=== PATIENT | male | born 1960 | race Caucasian/White ===

== ENCOUNTER 2021-06-29 00:05 | Emergency (ER) | payer OTHER ==
[~2021-06-29] VITALS: Ht 172 cm; Wt 77.2 kg
--- OUTSIDE RECORDS SUMMARY | 2021-06-29 00:20 | XMS REPORT | Encounter Summary ---
[facility] Address Unknown Phone Unavailable Care Team Providers Care Physician Assistant Surgery Name Role Phone ELVIN ROCHELLE PCP Unavailable Insurance Providers: All historical and current Section Date Range: From patient's date of to the date document was create d. This section includes the names of all active insurance providers for the greg lin Insurance Provider Type of Coverage Plan Name Start of Policy Co verage End of Policy Coverage Group Number Member ID Insurance Provider's Telephone N umber Policy Omalley's Name Patient's Relationship to Policy Omalley [employer] HE[employer]CARE PREFERRED PROVIDER ORGANIZATION (PPO) [employer] Sep 02, 2020 [id number] [phone] JADE WEBER SPO USE [employer] HEALTHCARE PREFERRED PROVIDER ORGANIZATION (PPO) [employer] Jun 13, 2016 [id number] [phone] JADE WEBER SPO USE [employer] ([id number]) [facility] [place] Jun 13, 2016 [id number] [phone] DMITRIY WEBER SPOUSE [facility] Tier 1 Performance Jun 13 [id number] [phone] JADE WEBER SPOUSE Selected Encounter This section includes the information on record at [place] for the Encounter. Date/Time Encounter Type Encounter Description Reason Provider Source Jun 07, 2021 02:00 PM IMMUNIZATION ADMIN EACH ADD PRIMARY CARE/M EDICINE ICD-10-CM Z23 Encounter for immunization with Provider Comments: Encounter for immunization DENA SONG [place] Encounter Template Text not used by [place] Assessments - Encounter Diagnoses This section includes the primary and secondary diag noses documented for the Encounter. Date/Time Primary/Secondary Diagnosis Diagnosis Name Provider Source Jun 07, 2021 02:05 PM PRIMARY Encounter for immunization DENA SONG Aaron [facility] Plan of Treatment: Future Appointments (+ 6 months) and Future Tests (+/- 45 day s) The Plan of Treatment section includes future care activities for the patient fr om all [place] treatment facilities. This section includes future appointments and fu ture orders which are active, pending or scheduled. Future Appointments This section includes appointments that were scheduled t o occur 6 months from the date of the Encounter, up to a maximum of 20 appointme nts. The data comes from all [place] treatment facilities. Appointment Date/Time Appointment Type Appointment Facili ty Name Jul 20, 2021 11:00 AM [facility]ORY - [facility] Sep 14, 2021 10:15 AM AMBULATORY - MEDICINE [facility] Sep 29, 2021 02:00 PM AM[facility]ULATORY MEDICINE [facility] Surgical Procedures: All associated to the encounter This section includes all Surgical Procedures and Surgical Procedure Notes assoc iated to the Encounter. Surgical Procedures This section includes all Surgical Procedures associated to the Encounter. Surgical Procedure Date/Time Procedure Procedure Type Procedure Qualifiers Provider Source Jun 07, 2021 02:00 PM IMMUNIZATION ADMIN EACH ADD IMMUNIZATION ADMI N EACH ADD DUNCANDENA Aaron [facility] Surgical Notes There are no notes associated with this procedure. Surgical Procedure Date/Time Procedure Procedure Type Procedure Qualifiers Provider Source Jun 07, 2021 02:00 PM IMMUNIZATION ADMIN [facility] Surgical Notes There are no notes associated with this procedure. Lab Results: +/- 30 days of the encounter No Data Provided for This Section Vital Signs: All taken on the encounter date No Data Provided for This Section Immunizations: All administered on the encounter date This section contains immunizations associated to the Encounter. Immunization Series Date Issued Reaction Comments INFLUENZA, INJECTABLE, QUADRIVALENT, PRESERVATIVE FREE Jun 07, 2021 INFLUENZA, SEASONAL, INJECTABLE, PRESERVATIVE FREE Jun 07, 2021 ZOSTER RECOMBINANT Jun 07, 2021 Social History: Smoking Status (Most current) and Tobacco Use (All prior to enco unter date) This section includes the most current, and the historical, smoking and tobacco- related health factors from the [place] facility where the Encounter took place. Current Smoking Status This section includes the most current smoking, or tobacco -related health factor, from the [place] facility where the Encounter took place. Date/Time Current Smoking Status Comment Facility Mar 31, 2021 11:00 AM VA-TOBACCO FORMER USER [facility] Tobacco Use History This section includes a history of the smoking, or tobacco -related health factors, that were collected on or before the date of the Encoun ter. The data comes from the [facility] where the Encounter took place. Date/Time Smoking Status/Tobacco Use Comment [facility] Mar 31, 2021 11:00 AM VA-TOBACCO QUIT 15 YRS OR MORE [facility] Dec 24, 2019 08:30 AM VA-TOBACCO FORMER USER [facility] Dec 24, 2019 08:30 AM VA-TOBACCO QUIT 15 YRS OR MORE [facility] Feb 28, 2018 11:10 AM VA-TOBACCO FORMER USER [facility] Feb 28, 2018 11:10 AM VA-TOBACCO QUIT 5 TO < 15 YRS [facility] Aug 15, 2016 07:38 AM CURRENT NON-TOBACCO USER [facility] Jul 14, 2015 08:40 AM CURRENT NON-TOBACCO USER [facility] Jul 01, 2014 09:42 AM CURRENT NON-TOBACCO USER [facility] Mar 19, 2013 11:17 AM CURRENT NON-TOBACCO USER [facility] Advance Directives: All historical and current No Data Provided for This Section Radiology Reports: +/- 30 days of the encounter No Data Provided for This Section Pathology Reports: +/- 30 days of the encounter No Data Provided for This Section Encounter Notes: All associated encounter notes This section contains the clinical notes associated to the Encounter. Date/Time Encounter Note(s) Provider Source Jun 07, 2021 02:02 PM IMMUNIZATION NOTE: LOCAL TITLE: EK-IMMUNIZATIONS/SKIN TESTS STANDARD TITLE: IMMUNIZATION NOTE DATE OF NOTE: JUN 07, 2021@14:02 ENTRY DATE: JUN 07, 2021@14:03:02 AUTHOR: DENA SONG COSIGNER: URGENCY: STATUS: COMPLETED INFLUENZA VACCINE The patient was given the influenza VIS which lists the benefits and side effects of the vaccine and which reviews the risks of not receiving the flu vaccine. The VIS was reviewed with the patient and they were given an opportunity to ask questions. The patient was provided education on how to decrease the risk of influenza infection including social distancing and use of good hand hygiene. The patient denied any prior severe reaction to the flu vaccine or its components. The patient gave verbal consent to receive the vaccine. The seasonal influenza vaccine VIS given to the patient: VIS version date Apr. The patient received seasonal influenza vaccine today - Influenza, Quadrivalent preservative free (Afluria) 0.5 ml IM today in Right Deltoid. 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 Fountain Helper: [employer] Lot#s and Expiration Date: 44E23 03-02-2023 [id number] 03-02-2023 Administered by protocol/policy Complications: None The VIS for the recombinant zoster vaccine (RZV) dated Jun was given to the patient. /roldan/ DENA SONG LPN Signed: 06/07/2021 14:05 DENA SONG [facility]
--- OUTSIDE RECORDS SUMMARY | 2021-06-29 00:20 | XMS REPORT | Encounter Summary ---
[facility] Address Unknown Phone Unavailable Care Team Providers Care Manager Battery Name Role Phone ROCHELLE OCONNOR PCP Unavailable Insurance Providers: All historical and [...] Name Patient's Relationship to Policy Omalley [employer] Virtual [employer] HEALTHCARE PREFERRED PROVIDER ORGANIZATION (PPO) [employer] Sep 02, 2020 [id number] [phone] JADE WEBER SPO USE [employer] HE[employer] PREFERRED PROVIDER ORGANIZATION (PPO) [employer] Jun 13, 2016 [id number] [phone] JADE WEBER SPO USE [employer] ([id number]) [facility] [place] Jun 13, 2016 [id number] [phone] DMITRIY WEBER SPOUSE [facility] [employer] Jun 13 [id number] [phone] JADE WEBER SPOUSE Selected Encounter This section includes the information on record at [place] for the Encounter. Date/Time Encounter Type Encounter Description Reason Provider Source Sep 29, 2020 08:42 AM Outpatient Encounter ADMIN PAT ACTIVTIES (MASNO NCT) IHE Encounter Template Text not used by [facility] Assessments - Encounter Diagnoses No Data Provided for This Section Plan of Treatment: Future Appointments (+ 6 months) and Future Tests (+/- 45 day s) The Plan of Treatment section includes future care activities for the patient fr om all [place] treatment facilities. This section includes future appointments and fu ture orders which are active, pending or scheduled. Future Appointments This section includes appointments that were scheduled t o occur 6 months from the date of the Encounter, up to a maximum of 20 appointme nts. The data comes from all [place] treatment facilities. Appointment Date/Time Appointment Type Appointment Facili ty Name Oct 25, 2020 09:30 AM AMBULATORY - MEDICINE [facility] Nov 21, 2020 01:30 PM AMBULATORY - [facility]ICINE [facility] [place] [facility] Dec 19, 2020 08:30 AM AMBULATORY - NONE [facility] [place] [facility] Surgical Procedures: All associated to the encounter No Data Provided for This Section Lab Results: +/- 30 days of the encounter This section includes the Chemistry and Hematology Lab R esults on record with [place] for the patient. Radiology Reports and Pathology Report s are provided separately, in subsequent sections. Lab Results This section contains the Chemistry/Hematology Results so t were resulted 30 days before or 30 days after the date of the Encounter. Date/Time Source Result Type Result - Unit Interpretation Reference Range Comment Sep 29, 2020 08:43 AM [facility] LIPID PROFILE(HDL,TRI G,CHOL,LDL) Specimen Type: PLASMA No comment entered. Ordering Provider: ROCHELLE OCONNOR Report Released Date/Time: Mar 30, 2020 07:45 AM Reporting Lab: [facility] [place] [facility] [address] [facility] [id number] Performing Lab: [facility] [place] [facility] [address] [facility] [address] CHOLESTEROL 193 mg/dL 0-200 TRIGS 96 mg/dL 0-150 HDL-CHOLESTEROL 46 mg/dL > 40 LDL (CALC) 128 mg/dL H 0-99 Sep 29, 2020 08:43 AM [facility] COMPREHENSIVE METABOL IC PANEL Specimen Type: PLASMA No comment entered. Ordering Provider: ROCHELLE OCONNOR Report Released Date/Time: Mar 30, 2020 07:45 AM Reporting Lab: [facility] [place] [facility] [address] [facility] [address] Performing Lab: [facility] [address] [facility] [address] *CREATININE 0.97 mg/dL 0.70-1.30 UREA NITROGEN mg/dL 25 mg/dL 9-25 GLUCOSE 102 mg/dL H 72-99 SODIUM 139 mEq/L 136-145 POTASSIUM 4.2 mEq/L 3.5-5.0 CALCIUM (mg/dL) 9.7 mg/dL 8.4-10.4 PROTEIN,TOTAL 7.0 g/dL 6.0-8.6 ALBUMIN 4.5 g/dL 3.4-5.0 TOTAL BILIRUBIN 0.7 mg/dL 0.2-1.2 ASPARTATE TRANSAMINASE 26 U/L 5-34 ALANINE AMINOTRANSFERASE 56 U/L H 8-40 CHLORIDE 101 mEq/L 98-107 CO2 31 mEq/L 22-31 ALKALINE PHOSPHATASE 41 U/L 40-150 EGFR 78.4 Sep 29, 2020 08:43 AM [facility] TSH Speci men Type: SERUM No comment entered. Ordering Provider: ROCHELLE OCONNOR Report Released Date/Time: Mar 30, 2020 07:45 AM Reporting Lab: [facility] [address] [facility] [address] Performing Lab: [facility] [address] [facility] [address] TSH 3.192 uIU/mL 0.47-5.00 Sep 29, 2020 08:43 AM [facility] T4 FREE Speci men Type: SERUM No comment entered. Ordering Provider: ROCHELLE OCONNOR Report Released Date/Time: Mar 30, 2020 07:45 AM Reporting Lab: [facility] [address] [facility] [address] Performing Lab: [facility] [address] [facility] [address] T4 FREE 1.03 ng/dL 0.70-1.48 Vital Signs: All taken on the encounter date No Data Provided for This Section Immunizations: All administered on the encounter date No Data Provided for This Section Social History: Smoking Status (Most current) and Tobacco Use (All prior to enco unter date) No Data Provided for This Section Advance Directives: All historical and current No Data Provided for This Section Radiology Reports: +/- 30 days of the encounter No Data Provided for This Section Pathology Reports: +/- 30 days of the encounter No Data Provided for This Section Encounter Notes: All associated encounter notes This section contains the clinical notes associated to the Encounter. Date/Time Encounter Note(s) Provider Source Sep 29, 2020 08:42 AM ADMINISTRATIVE NOTE: LOCAL TITLE: EK-ADMINISTRATIVE COVID-19 STANDARD TITLE: ADMINISTRATIVE NOTE DATE OF NOTE: SEP 29, 2020@08:42 ENTRY DATE: SEP 29, 2020@08:42:47 AUTHOR: ERICA COBB EXP COSIGNER: URGENCY: STATUS: COMPLETED Coronavirus Disease 2019 (COVID-19) Screen The patient reports no COVID-19 diagnosis. The patient reports not waiting for the results of a COVID-19 lab test. The patient reports no fever. The patient reports no new or worsening cough or shortness of breath. The patient reports no cold or flu-like symptoms. The patient reports no new onset of diarrhea, nausea or vomiting. The patient reports no new onset of headache, loss of taste or loss of smell. The patient reports no exposure to someone with COVID-19 within the past 2 weeks. Result: Screen is negative. COVID-19 Immunization Status There is no record of COVID-19 vaccination. /roldan/ ERICA PEGUERODAURRI Nestio Signed: 09/29/2020 08:43 ERICA COBB [facility]
--- OUTSIDE RECORDS SUMMARY | 2021-06-29 00:20 | XMS REPORT | Encounter Summary ---
Author Author [facility] Address Unknown Phone Unavailable Care Team Providers Care Health Administrator Name Role Phone ROCHELLE OCONNOR PCP Unavailable [...] Name Patient's Relationship to Policy Omalley [employer] Design Within [employer] HEALTHCARE PREFERRED PROVIDER ORGANIZATION (PPO) [employer] Sep 02, 2020 [id number] [phone] JADE WEBER SPO USE [employer] HEALTHCARE PREFERRED PROVIDER ORGANIZATION (PPO) [employer] Jun 13, 2016 [id number] [phone] JADE WEBER SPO USE [employer] ([id number]) [facility] [place] Jun 13, 2016 [id number] [phone] DMITRIY WEBER SPOUSE [facility] [employer] Jun 13 [id number] [phone] JADE WEBER SPOUSE Selected Encounter This section includes the information on record at [place] for the Encounter. Date/Time Encounter Type Encounter Description Reason Provider Source January 02, 2021 08:55 AM Outpatient Encounter [facility] FOLLOWUP IHE Encounter Template Text not used by [facility] Assessments - Encounter Diagnoses No Data Provided for This Section Plan of Treatment: Future Appointments (+ 6 months) and Future Tests (+/- 45 day s) The Plan of Treatment section includes future care activities for the patient fr om all [place] treatment facilities. This section includes future appointments and fu ture orders which are active, pending or scheduled. Future Appointments This section includes appointments that were scheduled t o occur 6 months from the date of the Encounter, up to a maximum of 20 appointme nts. The data comes from all [facility] facilities. Appointment Date/Time Appointment Type Appointment Facili ty Name Mar 30, 2021 08:30 AM AMBULATORY - MEDICINE [facility] Mar 31, 2021 11:00 AM AMBULATORY - [facility]IC[facility] Jun 07, 2021 02:00 PM AMBULATORY - NONE [facility] Surgical Procedures: All associated to the encounter [...] the Encounter. Date/Time Encounter Note(s) Provider Source January 02, 2021 08:55 AM NONVA CONSULT: LOCAL TITLE: COMMUNITY CARE CONSULT RESULT NOTE EK STANDARD TITLE: NONVA CONSULT DATE OF NOTE: JANUARY 02, 2021@08:55 ENTRY DATE: JANUARY 02, 2021@08:55:20 AUTHOR: SPIKE HATHAWAY EXP COSIGNER: URGENCY: STATUS: COMPLETED The following Non VA Care consult has been completed. See scanned document for report. Topic/Procedure:VISIT NOTES Institution/Place:[facility] Date of Service:05/10/20, 08/17/20 To refer to the attached scanned document, on the Tools Bar select the Tools, then select Imaging (log in) and then, if needed, select View and display list. /roldan/ SPIKE HATHAWAY state appellate clerk Signed: 01/02/2021 08:59 SPIKE HATHAWAY [facility] PRATIK Soriano IV
--- OUTSIDE RECORDS SUMMARY | 2021-06-29 00:20 | XMS REPORT | Clinical Summary ---
Author Author [facility] Address Unknown Phone Unavailable Care Team Providers Care Code Clerk Name Role Phone Gifty Arredondo PCP Source Comments Some departments are not documenting in the electronic medical record. If you d o not see the information that you expected, contact Release of Information in [facility] [employer] Information Management department at [phone] for further assistan ce in locating additional records.[facility] Allergies Comments Active Allergy Reactions Severity Noted Date Constipation Colestipol MUSCLE PAIN, Medium 04/30/2018 SEE COMMENTS Niacin HEADACHE Low 07/15/2015 Red Yeast Rice MUSCLE PAIN Medium 01/25/2016 Patient has Myasthenia Gravis. Statins cause muscle pain. Can only tolerate Atorvastatin. [id number]-[id number] Reductase MUSCLE PAIN Medium 08/02 Inhibitors Medications End Date Status Medication Sig Dispensed Refills Start Date Active atorvastatin (LIPITOR) 10 Take 10 mg by 0 mg tablet mouth daily. Active icosapent ethyL (VASCEPA) Take 1 g by 0 04/02 1 gram capsule mouth four 0 times daily. Active methocarbamoL (ROBAXIN) Take 500 mg 0 500 mg tablet by mouth as 0 Needed. Active ibuprofen (MOTRIN) 400 mg Take 400 mg 0 03/02 tablet by mouth as 7 Needed. Active aspirin EC 81 mg tablet Take 81 mg by 0 mouth daily. 7 Active cyanocobalamin 1,000 mcg Take 2,000 0 12/23 tablet mcg by mouth 0 daily. Active multivitamin with Take by 0 minerals (MULTIVITAMIN & mouth daily. MINERAL FORMULA PO) Active Problems Problem Noted Date Degenerative disc disease, cervical 05/10/2020 Surgical History Surgery Date Site/Laterality Comments ROTATOR CUFF REPAIR 09/02/2017 - Right 09/01/2018 Medical History Medical History Date Comments Myasthenia (HCC) Arthritis Myasthenia gravis (HCC) Social History Date Tobacco Use Types Packs/Day Years Used Never Smoker Smokeless Tobacco: Never Used Comments Alcohol Use Standard Drinks/Week Not Currently 0 (1 standard drink = 0.6 o z pure alcohol) Sex Assigned at Date Recorded Male 05/02/2020 11:17 AM CDT Last Filed Vital Signs Reading Time Taken Comments Vital Sign 162/55 08/17/2020 10:18 AM CAGE/VAULT SUPERVISOR Blood Pressure 74 08/17/2020 10:18 AM CAGE/VAULT SUPERVISOR Pulse 36.6 C (97.8 F) 08/17/2020 10:18 AM CAGE/VAULT SUPERVISOR Temperature 16 08/17/2020 9:00 AM CAGE/VAULT SUPERVISOR Respiratory Rate 100% 08/17/2020 9:00 AM CAGE/VAULT SUPERVISOR Oxygen Saturation - - Inhaled Oxygen Concentration 79.4 kg (175 lb) 08/17/2020 10:18 AM CAGE/VAULT SUPERVISOR Weight 171.5 cm (5' 7.5") 08/17/2020 10:18 AM CAGE/VAULT SUPERVISOR Height 27 08/17/2020 10:18 AM CAGE/VAULT SUPERVISOR Body Mass Index Plan of Treatment Health Maintenance Due Date Last Done Comments HIV SCREENING 1973 DTAP/TDAP VACCINES (1 - 02/10/1976 Tdap) HEPATITIS C SCREENING 02/10/1976 PHYSICAL (COMPREHENSIVE) 02/10/1976 EXAM COLORECTAL CANCER 02/10/2008 SCREENING SHINGLES RECOMBINANT 02/10/2008 VACCINE (1 of 2) INFLUENZA VACCINE 04/02/2021 Results Not on filefrom Last 3 Months Advance Directives Patient Desktop Support Engineer Explanation Type Date Recorded Advance Directive/DPOA
--- OUTSIDE RECORDS SUMMARY | 2021-06-29 00:21 | XMS REPORT | Encounter Summary ---
[facility] Address Unknown Phone Unavailable Care Team Providers Care Criminal Court Judge Name Role Phone ROCHELLE OCONNOR PCP Unavailable [...] [place] [employer] PREFERRED PROVIDER ORGANIZATION (PPO) [employer] Sep 02, 2020 [id number] [phone] JADE WEBER SPO USE [employer] PREFERRED PROVIDER ORGANIZATION (PPO) [employer] Jun 13, 2016 [id number] [phone] JADE WEBER SPO USE [employer] ([id number]) [facility] [place] Jun 13, 2016 [id number] [phone] [facility] [employer] Jun 13 [id number] [phone] JADE WEBER SPOUSE Selected Encounter This section includes the information on record at [place] for the Encounter. Date/Time Encounter Type Encounter Description Reason Provider Source Mar 31, 2021 11:00 AM OFFICE O/P EST MOD 30-39 MIN PRIMARY CARE/ MEDICINE ICD-10-CM E78.2 Mixed hyperlipidemia with Provider Comments: Mixed hyperlipidemia ([facility] [id number]) ROCHELLE OCONNOR [place] Encounter Template Text not used by [place] Assessments - Encounter Diagnoses This section includes the primary and secondary diag noses documented for the Encounter. Date/Time Primary/Secondary Diagnosis Diagnosis Name Provider Source Mar 31, 2021 07:58 PM PRIMARY Mixed hyperlipidemia SOPHIA OCONNOR [facility] Mar 31, 2021 07:58 PM SECONDARY Abnormal results of thyroi d function studies [facility] Mar 31, 2021 07:58 PM SECONDARY Athscl heart disea se of [place] coronary artery w/o ang pctrs [facility] Mar 31, 2021 07:58 PM SECONDARY Calculus of gallbl adder w/o cholecystitis w/o obstruction [facility] Mar 31, 2021 07:58 PM SECONDARY Cervical disc diso rder, unsp, unspecified cervical region [facility] Mar 31, 2021 07:58 PM SECONDARY Chronic fatigue, unspecified [facility] Mar 31, 2021 07:58 PM SECONDARY Cramp and spasm [facility] Mar 31, 2021 07:58 PM SECONDARY Elevation of level s of liver transaminase levels [facility] Mar 31, 2021 07:58 PM SECONDARY Encounter for immunization [facility] Mar 31, 2021 07:58 PM SECONDARY Gastro-esophageal reflux disease without esophagitis ELVIN,[facility] Mar 31, 2021 07:58 PM SECONDARY Myasthenia gravis with (ac sault ste[place]) exacerbation [facility] Mar 31, 2021 07:58 PM SECONDARY Other seasonal allergic rhinitis ELVIN,[facility] Mar 31, 2021 07:58 PM SECONDARY Pain in right shoulder ELVIN, [facility] Mar 31, 2021 07:58 PM SECONDARY Unspecified hemorrhoids ELVIN ,[facility] Plan of Treatment: Future Appointments (+ 6 months) and Future Tests (+/- 45 day s) The Plan of Treatment section includes future care activities for the patient fr om all VA treatment facilities. This section includes future appointments and fu ture orders which are active, pending or scheduled. Future Appointments This section includes appointments that were scheduled t o occur 6 months from the date of the Encounter, up to a maximum of 20 appointme nts. The data comes from all [facility]. Appointment Date/Time Appointment Type Appointment Facili ty Name Jun 07, 2021 02:00 PM AMBULATORY - NONE [facility] Jul 20, 2021 11:00 AM AMBULATORY - NONE [facility], VISN 15 Sep 14, 2021 10:15 AM AMBULATORY - MEDICINE [facility] Sep 29, 2021 02:00 PM AMBULATORY - MEDICINE [facility] [place] Active, Pending, and Scheduled Orders This section includes a listing of several types of activ e, pending, and scheduled orders, including clinic medications orders, diagnosti c test orders, procedure orders and consult orders; where the start date of th e order is 45 days before the date of the Encounter or 45 days after the date o f the Encounter. The data comes from all [facility]. Test Date/Time Test Type Test Details Facility Name Mar 31, 2021 11:28 AM Consult Order TO-EYE CARE OUTPT- 589A5 Cons [employer] [facility] Surgical Procedures: All associated to the encounter This section includes all Surgical Procedures and Surgical Procedure Notes assoc iated to the Encounter. Surgical Procedures This section includes all Surgical Procedures associated to the Encounter. Surgical Procedure Date/Time Procedure Procedure Type Procedure Qualifiers Provider Source Mar 31, 2021 11:00 AM IMMUNIZATION ADMIN IMMUNIZATION ADMIN ROCHELLE OCONNOR [facility] Surgical Notes There are no notes associated with this procedure. Lab Results: +/- 30 days of the encounter This section includes the Chemistry and Hematology Lab R esults on record with [place] for the patient. Radiology Reports and Pathology Report s are provided separately, in subsequent sections. Lab Results This section contains the Chemistry/Hematology Results so t were resulted 30 days before or 30 days after the date of the Encounter. Date/Time Source Result Type Result - Unit Interpretation Reference Range Comment Mar 30, 2021 08:38 AM [facility] LIPID PROFILE(HDL,TRI G,CHOL,LDL) Specimen Type: PLASMA No comment entered. Ordering Provider: ROCHELLE OCONNOR Report Released Date/Time: Oct 25, 2020 05:00 PM Reporting Lab: [facility] [address] [facility] [address] Performing Lab: [facility] [address] [facility] [address] CHOLESTEROL 181 mg/dL 0-200 TRIGS 91 mg/dL 0-150 HDL-CHOLESTEROL 50 mg/dL > 40 LDL (CALC) 113 mg/dL H 0-99 Mar 30, 2021 08:38 AM [facility] PROSTATIC SPECIFIC AN TIGEN(TOTAL) Specimen Type: SERUM No comment entered. Ordering Provider: ROCHELLE OCONNOR Report Released Date/Time: Oct 25, 2020 05:00 PM Reporting Lab: [facility] [address] [facility] [address] Performing Lab: [facility] [address] [place] [id number] PROSTATIC SPECIFIC ANTIGEN(TOTAL) 0.73 ng/mL 0.00-4.00 Mar 30, 2021 08:38 AM [facility] COMPREHENSIVE METABOL IC PANEL Specimen Type: PLASMA No comment entered. Ordering Provider: ROCHELLE OCONNOR Report Released Date/Time: Oct 25, 2020 05:00 PM Reporting Lab: [facility] [address] [facility] [address] Performing Lab: [facility] [address] [facility] [address] *CREATININE 0.90 mg/dL 0.70-1.30 UREA NITROGEN mg/dL 21 mg/dL 9-25 GLUCOSE 124 mg/dL H 72-99 SODIUM 139 mEq/L 136-145 POTASSIUM 4.1 mEq/L 3.5-5.0 CALCIUM (mg/dL) 9.5 mg/dL 8.4-10.4 PROTEIN,TOTAL 7.0 g/dL 6.0-8.6 ALBUMIN 4.5 g/dL 3.4-5.0 TOTAL BILIRUBIN 0.8 mg/dL 0.2-1.2 ASPARTATE TRANSAMINASE 26 U/L 5-34 ALANINE AMINOTRANSFERASE 43 U/L H 8-40 CHLORIDE 102 mEq/L 98-107 CO2 28 mEq/L 22-31 ALKALINE PHOSPHATASE 42 U/L 40-150 EGFR 85.2 Mar 30, 2021 08:38 AM [facility] TSH Speci men Type: SERUM No comment entered. Ordering Provider: ROCHELLE OCONNOR Report Released Date/Time: Oct 25, 2020 05:00 PM Reporting Lab: [facility] [address] [facility] [address] Performing Lab: [facility] [address] [facility] [address] TSH 4.105 uIU/mL 0.47-5.00 Mar 30, 2021 08:38 AM [facility] CBC & DIFF Speci men Type: BLOOD No comment entered. Ordering Provider: ROCHELLE OCONNOR Report Released Date/Time: Oct 25, 2020 05:00 PM Reporting Lab: [facility] [address] [facility] [address] Performing Lab: [facility] [address] [facility] [address] WBC 4.26 K/cmm 3.60-11.20 RBC 5.46 M/ul 4.1-5.7 HGB 16.1 g/dl 13.1-16.8 HCT 49.5 % H 38.2-48.4 MCV 90.7 fl 80.1-98.5 MCH 29.5 pg 27.0-34.0 MCHC 32.5 g/dl L 33.0-36.0 PLATELET COUNT 195 K/cmm 150-400 MPV 9.9 fl 7.5-11.2 RDW 13.2 % 11.8-15.1 LYMPHOCYTES, AUTO% 28.9 % NEUTROPHILS, AUTO % 63.4 % MONOCYTES, AUTO% 6.1 % MONOCYTES, ABSOLUTE 0.26 K/cmm 0.19-0.80 NEUTROPHILS, ABSOLUTE 2.70 K/cmm 2.10-8. 00 EOSINOPHILS, ABSOLUTE 0.05 K/cmm 0.00-0. 60 BASOPHILS, ABSOLUTE 0.01 K/cmm 0.00-0.20 EOSINOPHILS, AUTO% 1.2 % BASOPHILS, AUTO% 0.2 % LYMPHOCYTES, ABSOLUTE 1.23 K/cmm 0.77-4. 50 IMMATURE GRANS, ABSOLUTE 0.01 K/cmm 0.00 -0.05 IMMATURE GRANS, AUTO % 0.2 % Mar 30, 2021 08:38 AM [facility] URINALYSIS Speci men Type: URINE No comment entered. Ordering Provider: ROCHELLE OCONNOR Report Released Date/Time: Oct 25, 2020 05:00 PM Reporting Lab: [facility] [address] [facility] [address] Performing Lab: [facility] [address] [facility] [address] URINE COLOR Yellow SPECIFIC GRAVITY 1.024 1.005-1.030 UROBILINOGEN Negative mg/dL 0.1-1.0 URINE BILIRUBIN Negative Negative URINE KETONES Negative mg/dl Negative URINE GLUCOSE Negative mg/dL Negative URINE PROTEIN Negative mg/dl Negative-Tr nam URINE PH 6.0 5-8 APPEARANCE,URINE Clear Clear URINE BLOOD Negative Negative URINE NITRITE Negative Negative LEUKOCYTE ESTERASE Negative Negative Mar 30, 2021 08:38 AM [facility] VITAMIN D (25-OH) Sp ecimen Type: SERUM No comment entered. Ordering Provider: ROCHELLE OCONNOR Report Released Date/Time: Oct 25, 2020 05:00 PM Reporting Lab: [facility] [address] [facility] [address] Performing Lab: [facility] [address] [facility] [address] VITAMIN D (25-OH) 43.5 ng/mL 30.0-96.0 Mar 30, 2021 08:38 AM [facility] T4 FREE Speci men Type: SERUM No comment entered. Ordering Provider: ROCHELLE OCONNOR Report Released Date/Time: Oct 25, 2020 05:00 PM Reporting Lab: [facility] [address] [facility] [address] Performing Lab: [facility] [address] [facility] [address] T4 FREE 0.96 ng/dL 0.70-1.48 Vital Signs: All taken on the encounter date This section contains inpatient and outpatient Vital Signs collected on the date of the Encounter. Date/Time Temperature Pulse Blood Pressure Respiratory Rate SP02 Pa in Height Weight Body Mass Index Source Mar 31, 2021 11:00 AM 98.1 F 69 /min 138/95 mm[Hg] 18 /min 98 % 2 171.2 lb 26 [facility] Immunizations: All administered on the encounter date This section contains immunizations associated to the Encounter. Immunization Series Date Issued Reaction Comments ZOSTER RECOMBINANT 1 Mar 31, 2021 Social History: Smoking Status (Most current) and Tobacco Use (All prior to enco unter date) This section includes the most current, and the historical, smoking and tobacco- related health factors from the [place] facility where the Encounter took place. Current Smoking Status This section includes the most current smoking, or tobacco -related health factor, from the [place] facility where the Encounter took place. Date/Time Current Smoking Status Comment Facility Mar 31, 2021 11:00 AM VA-TOBACCO FORMER USER [facility] Tobacco Use History This section includes a history of the smoking, or tobacco -related health factors, that were collected on or before the date of the Encoun ter. The data comes from the [place] facility where the Encounter took place. Date/Time Smoking Status/Tobacco Use Comment [facility] Mar 31, 2021 11:00 AM VA-TOBACCO QUIT 15 YRS OR MORE [facility] Dec 24, 2019 08:30 AM VA-TOBACCO FORMER USER [facility] Dec 24, 2019 08:30 AM VA-TOBACCO QUIT 15 YRS OR MORE [facility] Feb 28, 2018 11:10 AM VA-TOBACCO FORMER USER [facility] Feb 28, 2018 11:10 AM VA-TOBACCO QUIT 5 TO < 15 YRS [facility] Aug 15, 2016 07:38 AM CURRENT NON-TOBACCO USER [facility] Jul 14, 2015 08:40 AM CURRENT NON-TOBACCO USER [facility] Jul 01, 2014 09:42 AM CURRENT NON-TOBACCO USER [facility] Mar 19, 2013 11:17 AM CURRENT NON-TOBACCO USER [facility] Advance Directives: All historical and current No Data Provided for This Section Radiology Reports: +/- 30 days of the encounter No Data Provided for This Section Pathology Reports: +/- 30 days of the encounter No Data Provided for This Section Encounter Notes: All associated encounter notes This section contains the clinical notes associated to the Encounter. Date/Time Encounter Note(s) Provider Source Mar 31, 2021 11:21 AM PRIMARY CARE NURSE PRACTITBRONWYN CARRION NOTE: LOCAL TITLE: EK-NURSE PRACTITIONER STANDARD TITLE: PRIMARY CARE NURSE PRACTITIONER NOTE DATE OF NOTE: MAR 31, 2021@11:21 ENTRY DATE: MAR 31, 2021@11:21:48 AUTHOR: ROCHELLE OCONNOR EXP COSIGNER: URGENCY: STATUS: COMPLETED EK-NURSE PRACTITIONER PC Has ADDENDA Reason for visit: appt, lab results CC: several issues HPI: Followup chronic medical conditions. * Voices frustration w/ potential changes w/ VA benefits. Received letter stating he may be liable to health care costs. Vet states he had to cancel scheduled nerve ablation, due to concern of potential costs he may incur if benefits denied. [facility] Ortho w/ Adriana to 04/29/21. "I can't get a straight answer from anyone that they will not go back retroactively and bill me for things." At time of last appt 10/25/20, vet c/o frustration w/ [facility] decision to deny nerve ablation tx for neck pain. 03/29/20 [facility] Ortho consult was approved w/ Dr Carrero, auth to 10/15/20. Evidently, Dr Carrero referred vet to other [facility] Ortho provider Dr Adriana Sexton to be eval for nerve ablation. This was denied. Discussed that this provider was not made aware of this. Doesn't appear an RFS was submitted. States he then was contacted by [facility] that the plan for nerve ablation treatment 10/10/20 was denied by VA/[facility]. * Had severe abd pain and went to ER in [place], [place], where his works, in late spring/early summer. Dx w/ gallstone. Pain mgt w/ IV fentanyl and pain relieved. DC to home. States had abd pain off and on for several days. None at present. Also finding of hematuria. Other providers: Self-PCP at [facility], Joi-Ortho surgeon, Graham Jacome PT ROS: Denies chest pain, shortness of breath, orthopnea. No c/o fatigue. No further severe cramps in legs, "seized, excrutiating". Sinus headaches on occasion, seasonal and pressure changes. TUMs prn. Denies dysphagia. History of and seldom troubled with hemorrhoids. Generally no change in bowel habits, tend to be looser. "may have a little IBS, depends on diet. Nocturia: 1x/nite. Denies edema. Skin problems: dry patches in winter anterior lower legs, forearms. R palm site, possible Dupuytren's. Joint pain: neck, R shoulder, left hip pain at nite, needs to change position at intervals at night. Leg cramps, muscle cramps, describes as "aysha horse" sensations in lower legs. Wearing Dansko shoes, help back and hip pain. Ingredient in licorice/same as in chewing tobacco, causes extreme K+ depletion in some people. Takes ibuprofen prn, not daily. Has muscle fatigue, occasional cramps in legs, later in pm. Left eye weakness. Double vision occurs with extremes of gazes "Not for a while". PSH: liver biopsy ? 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 chol problems, "took bucket of pills. Mother: age 85, hypoglycemic. 1 brother: living, no known health issues. 2 sisters: living, both have fibromyalgia Medications: Active Outpatient Medications (including Supplies): Outpatient Medications Status 1) ATORVASTATIN CALCIUM 20MG TAB TAKE ONE-HALF TABLET BY ACTIVE MOUTH AT BEDTIME FOR CHOLESTEROL. REPORT ANY UNEXPLAINED MUSCLE PAIN OR WEAKNESS TO YOUR DOCTOR. 2) ICOSAPENT ETHYL 1GM CAP TAKE TWO CA PSULES BY MOUTH ACTIVE TWO TIMES A DAY - TAKE WITH FOOD (N/F APPROVED) Non-VA Medications Status 1) Non-VA ACETAMINOPHEN 500MG TAB 500M G MOUTH TWO TIMES ACTIVE A DAY NEEDED 2) Non-VA ASPIRIN 81MG EC TAB 81MG LINNETTE TH ONCE A DAY ACTIVE 3) Non-VA CALCIUM CARB 500MG (CA 200MG ) CHEW TAB 500MG ACTIVE MOUTH NEEDED 4) Non-VA CYANOCOBALAMIN 1000MCG TAB 2 000MCG MOUTH ONCE ACTIVE A DAY 5) Non-VA IBUPROFEN 400MG TAB 400MG MO UTH TWO TIMES A ACTIVE DAY NEEDED 6) Non-VA MULTIVITAMINS/MINERALS CAP/T AB 2 GUMMIES MOUTH ACTIVE ONCE A DAY 8 Total Medications Compared newly ordered medications and medication changes to active medications and non-VA medications, and then reviewed medications with patient and/or caregiver. All discrepancies noted and reconciled. Patients, or caregivers, was provided with reconciled medications list and advised to provide to all non VA providers. Potential adverse reactions of new medications were discussed with the patient. Allergies: NIACIN, RED YEAST RICE, COLESTIPOL, ATORVASTATIN PE: Vital signs: B/P: 138/95 (03/31/2021 11:00) Temp: 98.1 F [36.7 C] (03/31/2021 11:00) Pulse: 69 (03/31/2021 11:00) Resp: 18 (03/31/2021 11:00) Height: 67.5 in [171.5 cm] (03/19/2013 14:04) Weight: 171.2 lb [77.8 kg] (03/31/2021 11:00) Pain: 2 (03/31/2021 11:00) BMI: 26.5 General: Ambulatory. Cooperative, alert and oriented to person, place and time. General appearance: casually dressed. No apparent distress. Note 7# wt gain since 03/29/20. HEENT: Glasses for reading, ISADORA, gazes intact, no nystagmus. TMs clear. Wearing mask. Neck. Supple. No adenopathy, thyromegaly, masses, bruits, JVD. Indicates neck pain from lower aspect to occiput. Respiratory: Unlabored. CTA. Cardiac: HRR, no murmurs. Abdomen: Soft. Bowel sounds +. Denies tenderness to palpation. Extremities: No edema. No cyanosis or clubbing. Labs: 03/30/21 Results reviewed with vet and copy provided. Reminders: P:Outpt Medication Reconciliation: MEDICATION RECONCILIATION I have reviewed all medications the patient is taking with the patient and/or caregiver. This includes the Local Active VA prescriptions, Remote Active VA prescriptions, Non-VA Medications, recently VA prescriptions (90-180 days), recently discontinued VA prescriptions (90-180 days) and pending medication orders including over the counter and supplemental medications. I have made changes on the Active Outpatient Medication List and updated the Non-VA Medication List as appropriate. Patient was educated on the need to maintain a current medication list. Copy of medication list given to patient and/or caregiver. Patient verbalizes understanding: yes. P:Test Results Notification: The following tests results along with appropriate management plan were discussed with patient at this clinic visit: Lab results It is documented that patient verbalized understanding of results and/or actions required? Yes Eye Care At-Risk Screen : Patient identified to be at risk for the following eye condition(s): MACULAR DEGENERATION: Macular Degeneration Risk Factors Information: Reminder Term: VA-AMD RISK FACTORS Encounter Diagnosis: 03/29/2020@14:30 I25.10 (ICD-10-CM) Atherosclerotic Heart Disease of [place] Coronary Artery without Angina Pectoris rank: SECONDARY Prov. Narr. - Atherosclerotic Heart Disease of [place] Coronary Artery without Angina Pectoris Action: Referral Ordered: Comprehensive Eye Exam Patient has active eye problems/symptoms. Schedule for a comprehensive eye exam ordered. Assessment/Plan: 1. mixed hyperlipidemia: LDL 113. Contin ues atorvastatin 10mg/day, icosapent 1gm 2 tabs BID. Fenofibrate DCd 10/01/19. Vet DCd Zetia 5mg/day due to elevation in LFT. Unable to tolerate niacin or colestipol. Nutrition consult attended 04/19/14. 2. Ocular myasthenia gravis/diplopia: O rder placed to update eye exam. [facility] Optometry consult 04/23/19. [facility] Neuro Dr Alvarez, seen in [place], [place] 11/09/16 with RX for Mestonin 60mg TID prn, DCd due to side effect of feeling jittery and did not change ocular issues. Directions were to take dose in am 1 hr prior to shaving and then if needed later in day. Avoids over- exertion, fatigue, dehydration, excessive heat. Avoids extremes of gaze which cause double vision. Vet is cautious about meds which can aggravate disease. 3. arthralgias/psoriatic arthritis: Take s Tylenol or ibuprofen prn. Last seen by Rheumatology 06/18/13, likely in remission, return if needed. Avoid stress, as this has been cause of flare in past. 4. muscle cramps: Rarely takes methocarb moreno 1000mg at hs prn. Vet has read that this can aggravate myasthenia gravis. Vet has DCd magnesium. Avoids dehydration. 5. cervical disc disease: Was scheduled w/ [facility] Ortho Dr Adriana Sexton MD coke inspector at [facility] for nerve ablation, but cancelled due to potential change in benefit coverage. At this time, vet does not want to reschedule. Auth to 04/29/21. [facility] ortho w/ Dr Carrero auth t o 10/15/20. [facility] PT completed w/o improvement. MRI, EMG. Multiple modalities w/o improvement. No ice or heat - didn't help. Seldom takes methocarbamol due to myasthenia gravis. Had cervical spine xray 11/05/19 at [facility], thru [facility], see 11/06/19 PACT note w/ report: Mild degenerative spondylosis is seen in the mid to lower cervical spine. Did not attend [facility] Chiropractic consult, not comfortable w/ facility. Prn Tylenol, ibuprofen, not too effective. Diclofenac gel prn. 6. GERD: prn TUMs 7. dermatitis/psoriasis: apply otc corti sone cream to lower legs prn, most effective after shower 8. LFT elevation: ALT 43, stated hx of l iver biopsy + fatty liver. US abd 05/26/14, mild splenomegaly, otherwise ne g 9. CAD seen on CT chest: cardiology cons ult 03/02/14, suggest optimize lipids with LDL goal < 100. Vet attended nutrition consult 04/19/14. Continued diet and exercise. 10. + family hx CVA/TIAs: negative screening US carotids, US AAA 11. hemorrhoids: screening colonoscopy , int hemorrhoids, repeat 7-10 yrs 12. environmental allergic rhinitis: Usi ng Breath Right strips at hs prn nasal congestion. Wants to avoid other options that may effect myasthenia gravis. 13. RIGHT shoulder pain: 09/19/18 right s [facility] arthroscopy surgery. [facility] PT attended. Diclofenac gel not effective prior to surgery. MRI [facility] 06/17/18, see same day PACT note w/ report. 14. hx elevated TSH; TSH and free T4 wnl . 03/17/20 TSH 10.04, no prior elevations. Continue to monitor. 15. cholelithiasis: No current sxs. Rece nt ER at [place], [place] ER. Will request records. No current sxs. UA neg. is involved in treatment decisions, options are discussed. Medications are reviewed, along with pros and cons and alternatives. Questions are encouraged and answered. Instructed to seek emergency medical care if necessary at nearest local facility, or call 911. Orders: 1. schedule 2nd vaccine 2. please request ER records from [place], [place] ER for visit within past 3 months w/ abd pain 3. 6 month fasting lab and appt to gerald tatum at [facility]: lipid, cmp, tsh /es/ ROCHELLE IRIZARRYNEY CHECO Signed: 03/31/2021 19:58 Receipt Acknowledged By: 04/04/2021 09:42 /es/ ELZA Montejo MA RTIN 04/04/2021 ADDENDUM STATUS: COMPLETED FAXED REQUEST FOR RECORDS SENT BY THIS WORKER TO [facility] AT [phone] THIS DATE BY THIS WORKER. /es/ ELZA BARNETT Signed: 04/04/2021 09:43 04/06/2021 ADDENDUM STATUS: COMPLETED 15 PAGE FAX REC'D FROM [facility] WITH THE 'S 01/26/21 ER VISIT TO [facility] REQUESTED BY THIS WORKER AT THE DIRECTION OF THE 'S PCP. GENERAL PRESENTATION: 01/26/21 1750 CHIEF COMPLAINT: ABDOMINAL PAIN HPI NOTES: PATIENT'S PLEASANT 60 YEAR OLD MALE WHO PRESENTS WITH RIGHT LOWER QUADRANT PAIN THAT STARTED ABOUT 45 HOURS AGO. HE STATES IT RADIATES UP INTO HIS RIGHT FLANK. HE DENIES ANY TETICULAR PAIN OR BURNING ON URINATION. HE HAS HAD NAUSEA AND VOMITING X 2 DAYS. HE DENIES NAY BLOOD IN HIS VOMIT. HE STATES 2 DAYS AGO HE HAD AN HOUR OF RIGHT LOWER QUADRANT PAIN THAT RESOLVED BY ITSELF AND THEN A WEEK AGO HE ALSO HAD A SMALL AMOUNT OF PAIN. HE STATES HIS APPENDIX OUT AT THE AGE OF 7. HE DENIES ANY TESTICULAR PAIN. REVIEW OF SYSTEMS: ROS STATEMENTS - ALL SYSTEMS REVIEWED AND NEGATIVE EXCEPT MARKED. CONSITITUTIONAL: DENIES, CHILLS, FATIGUE, FEVER, LETHARGY, MALAISE RECENT WEIGHT LOSS, WEAKNESS - GENERALIZED. RESPIRATORY: DENIES, COUTH, NON-RPODUCTIVE, COUGH, PRODUCTIVE, DYSPNEA ON EXERTION, HEMOPTYSIS, PAROX NOCTURNAL DYSPNA, PLEURITIC PAIN, SHORTNESS OF BREATH, WHEEZING. CARDIOVASCULAR: DENIES, CHEST PAIN, DYSPNEA ON EXERTION, EDEMA, ORTHOPNEA, PALPATATIONS, PAROX NOCTURNAL, DYSPNEA, SYNCOPE. GI: REPORTS, ABDOMINAL PAIN, NAUSEA, VOMITING. DENIES: ANOREXIA, BLECHING, BLOODY/TARRY STOOL,CONSTIPATION, DIARRHEA, DYSPHAGIA, HEMATEMESIS, HEMATOCHEZIA, MUCOUSY STOOL, MELENA, RECTAL PAIN. MALE: DENIES SYSURIA, FLANK PAIN, HEMATURIA, INCONTINENCE, NOCTURIA, PENILE DISCHARGE, PENILE LESIONS, SCROTAL SWELLING, TESTICULAR PAIN, TESTICULAR SWELLING, URINARY FREQUENCY, URINARY URGENCY, URINATION DESCREASED, URINATION INCREASED. NERUOLOGIC: DENIES, ABNORMAL MOVEMENT, BLADDER DYSFUNCTION, BOWEY DYSFUNCTION, CHANGE IN LOC, CONFUSION, DIZINESS, FOCAL WEAKNESS, GENERALIZED WEAKNESS, HEADACHE, LIGHTHEADE, NUMBNESS, PROBLEM WALKING, SEIZURE, SHAKING, SLURRED SPEECH, SPINNING SENSATION, SYNCOPE, TINGLING, UNABLE TO SPEAK, VISION CHANGE. PAST MEDICAL HISTORY: STATED COMPLAINT - ABDOMINAL PAIN ALLERFIES CODED ALLERGIES - NO KNOW ALLERGIES CALCULATED SUICIDE RISK: NO RISK SMOKING STATUS: NEVER SMOKER PHYSICAL EXAM: FIRST DOCUMENTED: PULSE OX - 100 BP - 203/95 BP MEAN - 131 O2 @ ROOM AIR TEMP - 36.6 PULSE - 67 RESP - 18 LAST DOCUMENTED: PULSE OX - 100 BP - 152-82 BP MEAN - 105 PULSE - 88 RESP - 18 02 @ ROOM AIR TEMP - 36.6 GENERAL: ALERT AND ORIENTED X 3 IN NO ACUTE DISTRESS, RESTING COMFORTABLY HEENT: EXTRAOCULAR MUSCLES INTACT, NOMOCEPHALIC ATRAUMATIC NECK/CERFICAL SPINE: NO MIDLINE CERVICAL TENDERNESS, NO LYMPHADENOPATHY APPRECIATED, NO MENINGEAL SIGNS OR NUCHAL RIGIDITY NOTED THORACIC/LUMBAR SPINE: NO MIDLINE SPINAL TENDERNESS, NO STEP-OFFS, NO ECCHYMOSIS OR OTHER ABNORMALITIES NOTED CHEST WALL: NO ECCHYMOSIS OR TENDERNESS APPRECIATED CARDIOVASCULAR: REGULAR RATE AND RHYTHM NO MURMURS APPRECIATED, NORMAL PERIPHERAL PERFUSION PULMONARY: CLEAR TO AUSCULATION BILATERALLY, NO WHEEZING OR RHONCHI APPRECIATED ABDOMEN: SOFT, TENDER PALPATION RIGHT LOWER QUADRANT, NO REBOUND OR GUARDING, POSITIVE BOWEL SOUNDS BENITAL EXAM: NORMAL EXTERNAL GENITALIA, NO MASSES APPRECIATED, BILATERAL DESCENDED TESTES ARE NONTENDER EXTREMITIES: MOVES ALL 4 EXTREMITIES EQUALLUY, NO OBVIOUS DEFORMITIES OR ECCHYMOSIS APPRECIATED NEURO: ALERT AND ACTIVE, NO FOCAL NEUROLOGICAL DEFICITS APPRECIATED, CRANIAL NERVES ii THROUGH XII GROSSLY INTACT, STRENGTH 5-5 BILATERAL UPPER AND LOWER EXTREMITIES PSYCH: DENIES SUCIDAL OR HOMICIDAL IDEATIONS, NORMAL THOUGHT PROCESS REVIEW OF VITAL SIGNS: REVIEWED INTERPRETATIONS & DIAGNOSTICS: LAB: CHEMISTRY SODIUM 136 POTASSIUM 3.8 CHLORIDE 99 L CARBON DIOXIDE 26 ANION GAP 15 BUN 19 CREATININE 1.2 GFT CLACULATION 64 RANDOM GLUCOSE 151 H CALCIUM 9.5 TOTAL BILIRUBIN 0.7 AST 22 ALT 54 TOTAL ALK PHOSPHATASE 50 TROPONIN <0.02 TOTAL PROTEIN 7.6 ALBUMIN 4.5 LAB: HEMATOLOGY WBC 11.5 H RBC 5.69 HGB 17.1 H HCT 50.3 MCV 88.4 MCH 30.1 MCHC 34.0 RDW 12.7 PLT COUNT 209 MPV 9.1 L IMMATURE GRAN % 0 NEUT % 89 LYMP % 7 JACQUI % 4 EOS% 0 BASO % 0 IMMATURE GRAN# 0.1 ABSOLUTE NEUTS 10.3 H ABSOLUTE LYMPHS 0.8 ABSOLUTE MONOS 0.4 ABSOLUTE EOS 0.0 ABSOLUTE BASOS 0.0 LAB: URINE COLOR YELLOW APPEARANCE CLEAR PH 7.0 SPECIFIC GRAVITY 1.020 PROTEIN NEGATIVE KETONES 40 H BLOOD MODERATE H NITRATE NEG BILIRUBIN NEG UROBILINOGEN 0.2 LEUKOCYTE ESTERASE NEG RBC 20-50 H WBC 0-5 SQUAMOUS EPITH CELLS FEW BACTERIA FEW H GLUCOSE NEG RECENT IMPRESSIONS: CT SCAN - ABD & PELVIS W/O CONTRAST IMPRESSION: 1 MILD TO MODERATE RIGHT HYDRONEPHROSIS SECONDAR TO A CALCULUS IN THE RIGHT PROMIMAL URETER. 2 PROMINENCE OF THE WALL SECONDS OF THE COLON AND RECTUM WHICH MAY BE SECONDARY TO UNDERDISTENTION. THESE SEGMENTS OF THE COLON ARE NOT WELL EVALUATION. CORRELATION WITH COLONSCOPY FINDINGS IS RECOMMENDED TO EXCLUDE CLOT PATHOLOGY. READ BY STEFANO GALLARDO MD ECG #1 INTERPRETATION: ADEQUATE TRACING. NO ACUTE ISCHEMIA. THYTHM IS NORMAL SINUS. WA DOES NOT DEMONOSTRAT AV HEART BLOCK. QRS DOES NOT DEMONOSTRATE A BUNDLE BRANCH BLOCK. ST AND T WAVES DO NOT SHOW ANY ST ELEVATION TO SUGGEST ACUTE [place]. SEE MUSE FOR DETAILS AND MEASUREMENTS. AGREE W COMPUTER INTERPRETATION. RE-EVALUATION & MDM PATIENT IS A PLEASANT 60 YEAR OLD MALE WHO PRESENTS WITH RIGHT FLANK PAIN AND HEMATURIA. CT SCAN IS PENDING AT THIS TIME. PATIENT BEING CHECK OUT TO DR. KWOK FOR FINAL DISPOSITION. PATIENT RECEIVED 2 DOSES OF 51 G OF FENTANYL AND NOW RATES HIS PAIN @ 2 OUT OF 10. THE BLOOD PRESSURE BEFORE TURNING PATIENT OVER TO DR. KWOK SHOWS A SYSTOLIC OF 152 MM HG. ED COURSE - MEDS ORDERED: FENTANYL CITRATE - 50 MCG - ASDIRED PRN IV SODIUM CHLORIDE - 10 ML - ASDIRED PRN IV ONDANSETRON HCI - 4 MG - ASDIRED PRN IV DISCHARGE AND DEPARTURE VITAL SIGNS FIRST DOCUMENTED: FIRST DOCUMENTED: PULSE OX - 100 BP - 203/95 BP MEAN - 131 O2 @ ROOM AIR TEMP - 36.6 PULSE - 67 RESP - 18 LAST DOCUMENTED: PULSE OX - 100 BP - 152-82 BP MEAN - 105 PULSE - 88 RESP - 18 02 @ ROOM AIR TEMP - 36.6 CLINICAL IMPRESSION PRIMARY - HEMATURIA SECONDARY - FLANK PAIN DISCHARGE CARE DISCHARGE TO HOME AT 2038 RE-EVALUATION AND MDM PROGRESS #1 IMPROVED, AFTER PAIN MEDS DONAVON IS FEELING MUCH BETTER. HE HAS A 3 MM STONE SHOWING. PATIENT WILL BE DISCHARGED TO HOME TO F/U WITH HIS PRIMARY CARE PHYSICIAN AN OUTPATIENT HE WAS GIVEN RETURN PRECAUTIONS HE UNDERSTAND AND AGREES WITH THE PLAN. PATIENT GIVEN REFERRAL TO UROLOGY AN OUTPATIENT. CURRENT VISIT SCRIPTS: MROPHINE IR MSIR 15 MG PO Q4H PRN PAIN #15 TAB IBUPROFEN MOTRIN IB 600 MG PO QID PRN PAIN #20 TAB PATIENT INSTRUCTIONS: ED KIDNEY STONE W/COLIC REFERRALS: RAIZA TRIVEDI: TOMORROW NOTE IS ELECTRONICALLY SIGNED BY SANTY VERA MD AT 1855 AND LUCIO KWOK MD AT 2039 INCLUDED IN FAX: LABS REPORT W PATHOLOGY ABD PELVIS W/O CONTRAST REPORT EKG STRIPS EKG REPORT ALL PAPERWORK IS COPIED AND FORWARDED TO THE 'S PCP FOR REVIEW WITH ORIGINAL FAX SENT TO MEDICAL RECORDS FOR SCAN THIS DATE BY THIS WORKER. /roldan/ ELZA BARNETT Signed: 04/06/2021 08:36 Receipt Acknowledged By: * AWAITING SIGNATURE * ROCHELLE OCONNOR [facility] Mar 31, 2021 11:06 AM NURSING OUTPATIENT NOTE: LOCAL TITLE: EK-NURSING CLINIC CHECK-IN STANDARD TITLE: NURSING OUTPATIENT NOTE DATE OF NOTE: MAR 31, 2021@11:06 ENTRY DATE: MAR 31, 2021@11:06:50 AUTHOR: ERICA COBB EXP COSIGNER: URGENCY: STATUS: COMPLETED EK-NURSING CLINIC CHECK-IN Has ADDENDA Coronavirus Disease 2019 (COVID-19) Screen The patient was asked if in the last 14 days they have had new onset of any COVID-19 symptoms. They report the following: No symptoms Within the past 14 days, the patient reports no exposure to someone with a febrile/respiratory illness or someone with a known or suspected case of COVID-19 (within 6 feet for > 15 minutes). Result: Screen is negative. PRIMARY REASON FOR VISIT TODAY: 6 MONTH FOLLOW UP PATIENT'S GOAL/MISSION FOR THEIR HEALTH: TO STAY UPRIGHT ALLERGIES/ADR: NIACIN, RED YEAST RICE, COLESTIPOL, ATORVASTATIN VITALS: DATE/TIME TEMP PULSE RESP BP PAIN WEIGHT PUL OX 03/31/21 @ 1100 98.1 69 18 138/95 2 171.2 98 MEDICATION RECONCILIATION: Copy of current medication list on file provided for patient. Instructed to compare with all medications they are currently taking, and to review /discuss discrepancies with provider. LEARNING ASSESSMENT: Patient's preferred language for discussing health care is: Urdu Today's learning assessment regarding patient's readiness to learn. Patient reads well. Barriers to Learning: Vision barrier addressed by: Other: READING ONLY. Preferred Method of Learning: Hands On/Doing Education provided as per documentation below: SCREENING FOR PAIN STATUS: Patient reported pain level as 2 (03/31/2021 11:00) on 0 to 10 scale. Pain Scale used: Numerical Pain Scale Patient states current level of pain is: Acceptable Location of pain that most interferes with your life: "GENERALIZED ALL OVER MUSCLE/JOINT PAINS" Characteristics of pain: PAIN QUALITY: Aching Verbal Education Provided: To patient Understanding of education: Patient: Good Patient Support Member: Not applicable Barriers to Learning: Visual SCREENING FOR FALL RISK: Estevez Fall Assessment History of Falling, immediate or within 3 months: 0 - No Has the patient fallen within the last 12 months? No Secondary Diagnosis: 15 - Yes, more than one diagnosis Ambulatory Aid: 0 - None, bed rest, nurse assist Intravenous Therapy: 0 - No Patient's Gait: 0 - Normal, bed rest, immobile Mental Status: 0 - Oriented to own ability Total Score: 15 Score 0-24 - No intervention indicated SCREENING FOR ABUSE/NEGLECT: Do you have any concerns about feeling safe, neglected or abused? Patient reports feeling safe; denies concern of abuse or neglect. Alcohol Use Screen (AUDIT-C): Alcohol Screen: SCREEN FOR ALCOHOL (AUDIT-C) An alcohol screening test (AUDIT-C) was negative (score=0). 1. How often did you have a drink containing alcohol in the past year? Never 2. How many drinks containing alcohol did you have on a typical day when you were drinking in the past year? Response not required due to responses to other questions. 3. How often did you have six or more drinks on one occasion in the past year? Response not required due to responses to other questions. Depression Screening: Perform PHQ-2 A PHQ-2 screen was performed. The score was 0 which is a negative screen for depression. Over the past two weeks, how often have you been bothered by the following problems? 1. Little interest or pleasure in doing things Not at all 2. Feeling down, depressed, or hopeless Not at all N:Offer MOVE! Program: Discussed with patient the MOVE!/Weight Management Program. The following health risks of overweight/obesity were discussed: heart disease, diabetes, sleep apnea, hypertension, arthritis and certain cancers. Assessed patients readiness to begin weight management activities including the MOVE! Program. Patient offered enrollment into the MOVE!/Weight Management Program. Declined Weight Management (MOVE) Program. N:Pressure Ulcer Risk Screening: Mobility/Friction/Shear - Patient requires assistance for changing position when in bed or chair? No Activity - Patient is confined to bed or requires a wheelchair as their only or primary method of ambulation? No History of Pressure Ulcer - Patient has current/previous wounding over a bony prominence or wounding caused by a medical affairs director? No Moisture - Patient has difficulty controlling bowel or bladder functions? No Nutrition - Patient has had significant weight loss in the past 6 months (10% or more of usual body weight)? No All responses are negative. Screening for risk is negative. Tobacco Use Screening: The patient is a former tobacco user. The patient quit fifteen or more years ago. DISPOSITION: TO PCP ROCHELLE OCONNOR AT 1120. /roldan/ ERICA Lynch Armut Signed: 03/31/2021 11:26 03/31/2021 ADDENDUM STATUS: COMPLETED Herpes Zoster (Shingles) Vaccine: The patient received recombinant zoster vaccine (RZV) 0.5 ml IM in Right deltoid. Roll Filler: [employer] Lot#s and Expiration Date: [email or web address] 09/24/22 [id number] 09/24/22 Administered by protocol/policy Complications: None /roldan/ ROYER PIMENTEL RN,BSN Signed: 03/31/2021 11:57 ERICA COBB [facility]
--- OUTSIDE RECORDS SUMMARY | 2021-06-29 00:21 | XMS REPORT | Encounter Summary ---
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 This section includes the names of all active insurance providers for the greg iln Insurance Provider Type of Coverage Plan Name Start of Policy Co verage End of Policy Coverage Group Number Member ID Insurance Provider's Telephone N umber Policy Omalley's Name Patient's Relationship to Policy Omalley [employer] PREFERRED PROVIDER ORGANIZATION (PPO) [employer] Sep 02, 2020 [id number] [phone] JADE WEBER SPO USE [employer] PREFERRED PROVIDER ORGANIZATION (PPO) [employer] Jun 13, 2016 [id number] [phone] JADE WEBER SPO USE [employer] ([id number]) [facility] [place] Jun 13, 2016 [id number] [phone] DMITRIY WEBER SPOUSE [facility] [employer] Jun 13 [id number] [phone] JADE WEBER SPOUSE Selected Encounter This section includes the information on record at [facility] for the Encounter. Date/Time Encounter Type Encounter Description Reason Provider Source Oct 25, 2020 12:00 AM Outpatient Encounter EVENT (HISTORICAL) IHE Encounter Template Text not used by [facility] Assessments - Encounter Diagnoses No Data Provided for This Section Plan of Treatment: Future Appointments (+ 6 months) and Future Tests (+/- 45 day s) The Plan of Treatment section includes future care activities for the patient fr om all [place] treatment facilities. This section includes future appointments and fu ture orders which are active, pending or scheduled. Future Appointments This section includes appointments that were scheduled t o occur 6 months from the date of the Encounter, up to a maximum of 20 appointme nts. The data comes from all [place] treatment facilities. Appointment Date/Time Appointment Type Appointment Facili ty Name Nov 21, 2020 01:30 PM AMBULATORY - MEDICINE [facility] Dec 19, 2020 08:30 AM AMBULATORY - NONE [facility] Mar 30, 2021 08:30 AM [facility]ORY [facility] MEDICINE [facility] Mar 31, 2021 11:00 AM AMBULATORY - MEDICINE [facility] Surgical Procedures: All associated to the encounter No Data Provided for This Section Lab Results: +/- 30 days of the encounter This section includes the Chemistry and Hematology Lab R esults on record with [facility] for the patient. Radiology Reports and Pathology Report s are provided separately, in subsequent sections. Lab Results This section contains the Chemistry/Hematology Results so t were resulted 30 days before or 30 days after the date of the Encounter. Date/Time Source Result Type Result - Unit Interpretation Reference Range Comment Sep 29, 2020 08:43 AM [facility] LIPID PROFILE(HDL,TRI G,CHOL,LDL) Specimen Type: PLASMA No comment entered. Ordering Provider: ROCHELLE OCONNOR Report Released Date/Time: Mar 30, 2020 07:45 AM Reporting Lab: [facility] [address] [facility] [id number] Performing Lab: [facility] [address] [facility] [address] CHOLESTEROL 193 mg/dL 0-200 TRIGS 96 mg/dL 0-150 HDL-CHOLESTEROL 46 mg/dL > 40 LDL (CALC) 128 mg/dL H 0-99 Sep 29, 2020 08:43 AM [facility] COMPREHENSIVE METABOL IC PANEL Specimen Type: PLASMA No comment entered. Ordering Provider: ROCHELLE OCONNOR Report Released Date/Time: Mar 30, 2020 07:45 AM Reporting Lab: [facility] [address] [facility] [address] Performing Lab: [facility] [address] [facility] [id number] *CREATININE 0.97 mg/dL 0.70-1.30 UREA NITROGEN mg/dL [...] EGFR 78.4 Sep 29, 2020 08:43 AM [facility] TSH Speci men Type: SERUM No comment entered. Ordering Provider: ROCHELLE OCONNOR Report Released Date/Time: Mar 30, 2020 07:45 AM Reporting Lab: [facility] [address] [facility] [phone] Performing Lab: [facility] [address] [facility] [phone] TSH 3.192 uIU/mL 0.47-5.00 Sep 29, 2020 08:43 AM [facility] T4 FREE Speci men Type: SERUM No comment entered. Ordering Provider: ROCHELLE OCONNOR Report Released Date/Time: Mar 30, 2020 07:45 AM Reporting Lab: [facility] [address] [facility] [address] Performing Lab: [facility] [address] [facility] [phone] T4 FREE 1.03 ng/dL 0.70-1.48 Vital Signs: [...] Section Encounter Notes: All associated encounter notes No Data Provided for This Section
--- OUTSIDE RECORDS SUMMARY | 2021-06-29 00:21 | XMS REPORT | Encounter Summary ---
[facility] Address Unknown Phone Unavailable Care Team Providers Care Anode Crew Supervisor Name Role Phone ROCHELLE OCONNOR PCP Unavailable [...] [place] [employer] PREFERRED PROVIDER ORGANIZATION (PPO) [employer] Sep 02, 2020 [id number] [phone] JADE WEBER SPO USE [employer] PREFERRED PROVIDER ORGANIZATION (PPO) [employer] Jun 13, 2016 [id number] [phone] JADE WEBER SPO USE [facility] ([id number]) [facility] [place] Jun 13, 2016 [id number] [phone] [facility] Jun 13 [id number] [phone] JADE WEBER SPOUSE Selected Encounter This section includes the information on record at NH for the Encounter. Date/Time Encounter Type Encounter Description Reason Provider Source Oct 25, 2020 09:30 AM OFFICE O/P EST MOD 30-39 MIN PRIMARY CARE/ MEDICINE ICD-10-CM G70.00 Myasthenia gravis without (acute) exacerbation with Provider Comments: Myasthenia gravis without (acute) exacerbation ROCHELLE OCONNOR [place] Encounter Template Text not used by NH Assessments - Encounter Diagnoses This section includes the primary and secondary diag noses documented for the Encounter. 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 [facility] Oct 25, 2020 04:54 PM SECONDARY Cervical disc diso rder, unsp, unspecified cervical region [facility] Oct 25, 2020 04:54 PM SECONDARY Cramp and spasm ROCHELLE OCONNOR [facility] Oct 25, 2020 04:54 PM SECONDARY [facility]ermatitis, [facility] Oct 25, 2020 04:54 PM SECONDARY Gastro-esophageal reflux disease without esophagitis [facility] Oct 25, 2020 04:54 PM SECONDARY Mixed hyperlipidemia SOPHIA OCONNOR [facility] Oct 25, 2020 04:54 PM SECONDARY Other psoriatic arthropathy [facility] Oct 25, 2020 04:54 PM SECONDARY Other seasonal allergic rhinitis [facility] Oct 25, 2020 04:54 PM SECONDARY Prsnl hx of TIA (T IA), and cereb infrc w/o resid deficits [facility] Oct 25, 2020 04:54 PM SECONDARY Unspecified hemorrhoids ELVIN [facility] Plan of Treatment: Future Appointments (+ 6 months) and Future Tests (+/- 45 day s) The Plan of Treatment section includes future care activities for the patient fr om all NH treatment facilities. This section includes future appointments and fu ture orders which are active, pending or scheduled. Future Appointments This section includes appointments that were scheduled t o occur 6 months from the date of the Encounter, up to a maximum of 20 appointme nts. The data comes from all NH treatment facilities. Appointment Date/Time Appointment Type Appointment Facili ty Name Nov 21, 2020 01:30 PM AMBULATORY - MEDICINE [facility] Dec 19, 2020 08:30 AM AMBULATORY - NONE [facility] [place] Mar 30, 2021 08:30 AM AMBULATORY - MEDICINE [facility] Mar 31, 2021 11:00 AM AMBULATORY - MEDICINE [facility] Surgical Procedures: All associated to the encounter No Data Provided for This Section Lab Results: +/- 30 days of the encounter This section includes the Chemistry and Hematology Lab R esults on record with NH for the patient. Radiology Reports and Pathology Report s are provided separately, in subsequent sections. Lab Results This section contains the Chemistry/Hematology Results so t were resulted 30 days before or 30 days after the date of the Encounter. Date/Time Source Result Type Result - Unit Interpretation Reference Range Comment Sep 29, 2020 08:43 AM [facility] LIPID PROFILE(HDL,TRI G,CHOL,LDL) Specimen Type: PLASMA No comment entered. Ordering Provider: ROCHELLE OCONNOR Report Released Date/Time: Mar 30, 2020 07:45 AM Reporting Lab: [facility] [place] [facility] [address] [facility] [id number] Performing Lab: [facility] [address] [facility] [address] CHOLESTEROL 193 mg/dL 0-200 TRIGS 96 mg/dL 0-150 HDL-CHOLESTEROL 46 mg/dL > 40 LDL (CALC) 128 mg/dL H 0-99 Sep 29, 2020 08:43 AM [facility] COMPREHENSIVE METABOL IC PANEL Specimen Type: PLASMA No comment entered. Ordering Provider: ROCHELLE OCONNOR Report Released Date/Time: Mar 30, 2020 07:45 AM Reporting Lab: [facility] [place] [facility] [address] [facility] [phone] Performing Lab: [facility] [place] [facility] [address] [facility] [phone] *CREATININE 0.97 mg/dL 0.70-1.30 UREA NITROGEN mg/dL [...] EGFR 78.4 Sep 29, 2020 08:43 AM [facility] TSH Speci men Type: SERUM No comment entered. Ordering Provider: ROCHELLE OCONNOR Report Released Date/Time: Mar 30, 2020 07:45 AM Reporting Lab: [facility] [address] [facility] [address] Performing Lab: [facility] [facility] [address] [facility] [address] TSH 3.192 uIU/mL 0.47-5.00 Sep 29, 2020 08:43 AM [facility] T4 FREE Speci men Type: SERUM No comment entered. Ordering Provider: ROCHELLE OCONNOR Report Released Date/Time: Mar 30, 2020 07:45 AM Reporting Lab: [facility] [place] [facility] [address] [facility] [address] Performing Lab: [facility] [place] [facility] [address] [facility] [address] T4 FREE 1.03 ng/dL 0.70-1.48 Vital Signs: All taken on the encounter date This section contains inpatient and outpatient Vital Signs collected on the date of the Encounter. Date/Time Temperature Pulse Blood Pressure Respiratory Rate SP02 Pa in Height Weight Body Mass Index Source Oct 25, 2020 09:59 AM 175.9 lb 2 7 [facility] Oct 25, 2020 09:46 AM 6 [facility] Oct 25, 2020 09:37 AM 97.3 F 76 /min 134/76 mm[Hg] 20 /min 100 % 6 [facility] Immunizations: All administered on the encounter date No Data Provided for This Section Social History: Smoking Status (Most current) and Tobacco Use (All prior to enco unter date) This section includes the most current, and the historical, smoking and tobacco- related health factors from the NH facility where the Encounter took place. Current Smoking Status This section includes the most current smoking, or tobacco -related health factor, from the NH facility where the Encounter took place. Date/Time Current Smoking Status Comment Facility Dec 24, 2019 08:30 AM VA-TOBACCO QUIT 15 YRS OR MORE [facility] Tobacco Use History This section includes a history of the smoking, or tobacco -related health factors, that were collected on or before the date of the Encoun ter. The data comes from the NH facility where the Encounter took place. Date/Time Smoking Status/Tobacco Use Comment [facility] it Dec 24, 2019 08:30 AM VA-TOBACCO QUIT 15 YRS OR MORE [facility] Feb 28, 2018 11:10 AM VA-TOBACCO FORMER USER [facility] Feb 28, 2018 11:10 AM VA-TOBACCO QUIT 5 TO < 15 YRS [facility] Aug 15, 2016 07:38 AM CURRENT NON-TOBACCO USER [facility] Jul 14, 2015 08:40 AM CURRENT NON-TOBACCO USER [facility] Jul 01, 2014 09:42 AM CURRENT NON-TOBACCO USER [facility] Mar 19, 2013 11:17 AM CURRENT NON-TOBACCO USER [facility] Advance Directives: All historical and current No Data Provided for This Section Radiology Reports: +/- 30 days of the encounter No Data Provided for This Section Pathology Reports: +/- 30 days of the encounter No Data Provided for This Section Encounter Notes: All associated encounter notes This section contains the clinical notes associated to the Encounter. Date/Time Encounter Note(s) Provider Source Oct 25, 2020 09:42 AM NURSING OUTPATIENT NOTE: LOCAL TITLE: EK-NURSING CLINIC CHECK-IN STANDARD TITLE: NURSING OUTPATIENT NOTE DATE OF NOTE: OCT 25, 2020@09:42 ENTRY DATE: OCT 25, 2020@09:42:15 AUTHOR: DENA SONG COSIGNER: URGENCY: STATUS: COMPLETED EK-NURSING CLINIC CHECK-IN [...] There is no record of COVID-19 vaccination. PRIMARY REASON FOR VISIT TODAY: fu PATIENT'S GOAL/MISSION FOR THEIR HEALTH: be healthy ALLERGIES/ADR: NIACIN, RED YEAST RICE, COLESTIPOL, ATORVASTATIN VITALS: DATE/TIME TEMP PULSE RESP BP PAIN WEIGHT PUL OX 10/25/20 @ 0937 97.3 76 20 134/76 6 175.9 100 REPRODUCTIVE HISTORY: Concerns regardng sexual/reproductive health: None MEDICATION RECONCILIATION: Copy of current medication list on file provided for patient. Instructed to compare with all medications they are currently taking, and to review /discuss discrepancies with provider. LEARNING ASSESSMENT: Patient's preferred language for discussing health care is: Malay Today's learning assessment regarding patient's readiness to learn. Patient reads well. Barriers to Learning: Has no barriers to learning. Preferred Method of Learning: Reading Listening Seeing / Videos Demonstration Return Demonstration Hands On/Doing Education provided as per documentation below: SCREENING FOR PAIN STATUS: Patient reported pain level as 6 (10/25/2020 09:37) on 0 to 10 scale. * Today's Pain Level: 6 Pain Scale used: Numerical Pain Scale Patient states current level of pain is: Acceptable Location of pain that most interferes with your life: neck Characteristics of pain: PAIN QUALITY: Aching Verbal Education Provided: To patient Understanding of education: Patient: Good Patient Support Member: Not applicable Barriers to Learning: None SCREENING FOR FALL RISK: Estevez Fall Assessment History of Falling, immediate or within 3 months: 25 - Yes Has the patient fallen within the last 12 months? Yes Secondary Diagnosis: 15 - Yes, more than one diagnosis Ambulatory Aid: 0 - None, bed rest, nurse assist Intravenous Therapy: 0 - No Patient's Gait: 0 - Normal, bed rest, immobile Mental Status: 0 - Oriented to own ability Total Score: 40 Moderate (25-44) Provided educational handout: Fall Prevention at Home SCREENING FOR ABUSE/NEGLECT: Do you have any concerns about feeling safe, neglected or abused? Patient reports feeling safe; denies concern of abuse or neglect. SECURE MESSAGING: Patient was invited/encouraged to utilize Secure Messaging for medication refill requests and other non-urgent communication. N:Zoster Immunization: The patient declines to receive the herpes zoster vaccine. Comment: wanting Covid vaccine will wait Influenza Immunization: The patient declines to receive the recommended dose of seasonal influenza vaccine. Comment: wanting covid vac will wait N:BMI Screen: * Weight: 175.9 lb (80 kg) /es/ DENA SONG LPN Signed: 10/25/2020 10:00 10/25/2020 ADDENDUM STATUS: COMPLETED P/C FROM WHO ADVISES THAT HE WAS TO RETURN A CALL TO THIS OFFICE TO PROVIDE HIS PCP ROCHELLE OCONNOR WITH THE INFORMATION REGARDING THE ORTHO DOCTOR THAT HE WAS REFERRED TO: ELISEO SEXTON MD, DRAW FIRE OPERATOR [address] [place] [address] /roldan/ ELZA BARNETT Signed: 10/25/2020 13:32 Receipt Acknowledged By: * AWAITING SIGNATURE * ROCHELLE OCONNOR KATHY J [facility] Oct 25, 2020 09:31 AM ADMINISTRATIVE NOTE: LOCAL TITLE: EK-ADMINISTRATIVE STANDARD TITLE: ADMINISTRATIVE NOTE DATE OF NOTE: OCT 25, 2020@09:31 ENTRY DATE: OCT 25, 2020@09:31:35 AUTHOR: ELZA BARNETT EXP COSIGNER: URGENCY: STATUS: COMPLETED PATIENT PRESENTS TO CLINIC TO CHECK IN FOR A LAB DRAW, A PRIMARY CARE, APPOINTMENT OR A BEHAVIOR HEALTH APPOINTMENT TODAY. IS TEMP CHECKED AND CLEARED TO PROCEED. IS QUESTIONED ABOUT COVID POSITIVE CONTACT WITHIN THE LAST 10 DAYS: "no" IS QUESTIONED ABOUT WHETHER HE/SHE HAS TESTED POSITIVE FOR COVID IN THE LAST 10 DAYS: "no" 'S DEMOGRAPHICS AND INSURANCE ARE CHECKED BY THIS WORKER AND HIS/HER EMAIL ADDRESS IS VERIFIED: CONFIRMS HIS EMAIL ADDRESS FOR ENTRY INTO THE SYSTEM: GUS@Intean Po[employer] Rong[employer]urng 'S COVID19 INJECTION OPTIONS ARE DISCUSSED AND THE IS QUESTIONED REGARDING SCHEDULING AT [facility] OR AWAITING AN INJECTION CLINIC AT [facility]. " ADVISES SHE IS NOT INTERESTED IN THE COVID19 VACCINE" IS REQUESTED TO PROCEED TO THE [facility] AND SELF CHECK IN. /roldan/ ELZA BARNETT Signed: 10/25/2020 09:[address] [facility] Oct 25, 2020 09:10 AM PRIMARY CARE NURSE PRACTITBRONWYN CARRION NOTE: LOCAL TITLE: EK-NURSE PRACTITIONER STANDARD TITLE: PRIMARY CARE NURSE PRACTITIONER NOTE DATE OF NOTE: OCT 25, 2020@09:10 ENTRY DATE: OCT 25, 2020@09:10:58 AUTHOR: ROCHELLE OCONNOR COSIGNER: URGENCY: STATUS: COMPLETED Reason for visit:Reason for visit: appt, lab results CC: several issues HPI: Followup chronic medical conditions. * c/o frustration w/ [facility] decision to deny nerve ablation tx for neck pain. 03/29/20 [facility] Ortho consult was approved w/ Dr Aguilera, auth to 10/15/20. Evidently, Dr Aguilera referred vet to other [facility] Ortho provider Dr Eliseo Sexton to be eval for nerve ablation. This was denied. Discussed that this provider was not made aware of this. Doesn't appear an RFS was submitted. Will submit new consult, v/u. [facility] Ortho authorized w/ DR ALEXIS AGUILERA, [facility], AUTH DATE [id number]. Vet states he has recei jeannie several associated bulls. States he then was contacted by [facility] that the plan for nerve ablation treatment 10/10/20 was denied by [facility]. * Primary c/o neck pain. Voices frustration. Completed PT. Ortho consult to [facility]. MRI, EMG. Multiple modalities w/o improvement. No ice or heat - didn't help. No Tylenol or ibuprofen, not helpful. Seldom takes methocarbamol due to myasthenia gravis. Had cervical spine xray 11/05/19 at [facility], thru [facility], see 11/06/19 PACT note w/ report. * TSH repeat 3.1. Unusual spike in TSH to 10.4 on 03/17/20. Recheck 04/07/20 was 5.9. Recheck 06/22/20 wnl at 3.78. Vet s tates no change in his usual diet, or activities. Will continue to monitor at intervals. Other providers: Self-PCP at [facility], Joi-Ortho surgeon, Graham Jacome PT ROS: Denies chest pain, shortness of breath, orthopnea. No c/o fatigue. No further severe cramps in legs, "seized, excrutiating". Sinus headaches on occasion, seasonal and pressure changes. Occasional reflux, TUMs prn. Denies dysphagia. History of and seldom troubled with hemorrhoids. Generally no change in bowel habits, tend to be looser. "may have a little IBS, depends on diet. Has improved." Nocturia: 1x/nite. Denies edema. 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 [...] DAY - TAKE WITH FOOD (N/F APPROVED) 3) METHOCARBAMOL 500MG TAB TAKE TWO TA BLETS BY MOUTH AT ACTIVE BEDTIME NEEDED FOR MUSCLE SPASM Non-VA Medications Status 1) Non-VA ASPIRIN 81MG EC TAB 81MG LINNETTE TH ONCE A DAY ACTIVE 2) Non-VA CALCIUM CARB 500MG (CA 200MG ) CHEW TAB 500MG ACTIVE MOUTH NEEDED 3) Non-VA CYANOCOBALAMIN 1000MCG TAB 2 000MCG MOUTH ONCE ACTIVE A DAY 4) Non-VA IBUPROFEN 400MG TAB 400MG MO UTH TWO TIMES A ACTIVE DAY NEEDED 5) Non-VA MULTIVITAMINS/MINERALS CAP/T AB 2 GUMMIES MOUTH [...] RICE, COLESTIPOL, ATORVASTATIN PE: Vital signs: B/P: 134/76 (10/25/2020 09:37) Temp: 97.3 F [36.3 C] (10/25/2020 09:37) Pulse: 76 (10/25/2020 09:37) Resp: 20 (10/25/2020 09:37) Height: 67.5 in [171.5 cm] (03/19/2013 14:04) Weight: 175.9 lb [80.0 kg] (10/25/2020 09:59) Pain: 6 (10/25/2020 09:46) BMI: 27.2 General: Ambulatory. Cooperative, alert and oriented to [...] No edema. No cyanosis or clubbing. Labs: 09/29/20 Results reviewed with vet and copy provided. [...] understanding of results and/or actions required? Yes Suicide Screen: C-SSRS Screening [place]-Suicide Severity Rating Scale (C-SSRS Screener) 1. Over the past month, have you wished you were or wished you could go to sleep and not wake up? No 2. Over the past month, have you had any actual thoughts of killing yourself? No 3. Over the past month, have you been thinking about how you might do this? Response not required due to responses to other questions. 4. Over the past month, have you had these thoughts and had some intention of acting on them? Response not required due to responses to other questions. 5. Over the past month, have you started to work out or worked out the details of how to kill yourself? Response not required due to responses to other questions. 6. If yes, at any time in the past month did you intend to carry out this plan? Response not required due to responses to other questions. 7. In your lifetime, have you ever done anything, started to do anything, or prepared to do anything to end your life (for example, collected pills, obtained a gun, gave away valuables, went to the roof but didn't jump)? No 8. If YES, was this within the past 3 months? Response not required due to responses to other questions. [facility] DIGITAL DIVIDE CAPABILITY REMINDER: Patient is not interested in [facility] at this time. 'S RIGHT TO DECLINE STATEMENT understands they have the right to decline the use of [employer] at any time without adverse affects on their continued access to healthcare. Eye Care At-Risk Screen (Nurse): Patient identified to be at risk for the following eye condition(s): MACULAR DEGENERATION: Macular Degeneration Risk Factors Information: Reminder Term: VA-AMD RISK FACTORS Encounter Diagnosis: 03/29/2020@14:30 I25.10 (ICD-10-CM) Atherosclerotic Heart Disease of [place] Coronary Artery without Angina Pectoris rank: SECONDARY Prov. Narr. - Atherosclerotic Heart Disease of [place] Coronary Artery without Angina Pectoris Referral Ordered: Comprehensive Eye Exam Patient has active eye problems/symptoms. Schedule for a comprehensive eye exam ordered. P:Fall Evaluation: Circumstances of the fall: slipped on ice, no injury Diagnostic Plan/Therapeutic Recommendations: Other: no eval sought P:IHD/IVD/DM Elevated LDL: No lipid treatment change is needed based on patient's current status. Comment: unable to tolerate higher dose atorvastatin P:Pain Plan of Care: Patient's pain is not currently being managed effectively. Select any/all: Other (i.e. referrals): Submit another Ortho consult w/ document improvement specialist Assessment/Plan: 1. mixed hyperlipidemia: LDL 128. 6/19/2 0 lipids well within target per local PCP office. Continues atorvastatin 10mg/day, icosapent 1gm 2 tabs BID. Fenofibrate on HOLD since 10/01/19. Vet DCd Zetia 5mg/day due to elevation in LFT. Unable to tolerate niacin or colestipol. Nutrition consult attended 04/19/14. 2. Ocular myasthenia gravis/diplopia: O rder placed to update eye exam. [facility] Optometry consult 04/23/19. [facility] Neuro 10/25/15. [facility] Neuro Dr Alvarez, seen in [place], [place] 11/09/16 with RX for Mestonin 60mg [...] Vet has DCd magnesium. Avoids dehydration. 5. neck pain: Submit [facility] consult for ev al and treat w/ Dr Eliseo Sexton MD nutrition therapist at [facility]. [facility] ortho w/ Dr Aguilera auth to 10/15/20. [facility] PT completed w/o improvement. 11/05/19 cerv spine xray thru [facility] at [facility], see JUDAH, 11/06/19 PACT note: Mild degenerative spondylosis is seen in the mid to lower cervical spine. Did not attend [facility] Chiropractic consult, not comfortable w/ facility. Prn Tylenol, ibuprofen. Diclofenac gel prn. 6. GERD: prn TUMs 7. dermatitis/psoriasis: apply otc corti sone cream to lower legs prn, most effective after shower 8. LFT elevation: ALT 56, stated hx of l iver biopsy + [...] 13. RIGHT shoulder pain: 09/19/18 right s [facility] arthroscopy surgery. [facility] PT attended. Diclofenac gel not effective prior to surgery. MRI thru [facility] at [facility] 06/17/18, see same day PACT note w/ report. 14. hx elevated TSH; TSH 3.1, free T4 1. 03. 03/17/20 TSH 10.04, no prior elevations. 04/07/20 TSH 5.9. Recheck 06/22/20 and wnl. Continue to monitor. is involved in treatment decisions, options are discussed. Medications are reviewed, along with pros and cons and alternatives. Questions are encouraged and answered. Instructed to seek emergency medical care if necessary at nearest local facility, or call 911. Orders: 1. 5 month fasting lab and appt to gerald tatum at [facility]: lipid, cmp, cbc, tsh, free T4, psa, UA, Vit D /roldan/ ROCHELLE KESSLER Signed: 10/25/2020 16:54 Receipt Acknowledged By: 10/25/2020 17:03 /roldan/ ROCHELLE RANKIN MA [facility]
--- OUTSIDE RECORDS SUMMARY | 2021-06-29 00:21 | XMS REPORT | Encounter Summary ---
[facility] Address Unknown Phone Unavailable Care Team Providers Care Shanker Out Name Role Phone ELVIN ROCHELLE PCP Unavailable [...] Omalley [employer] PREFERRED PROVIDER ORGANIZATION (PPO) [place] Sep 02, 2020 [id number] [phone] JADE WEBER SPO USE [employer] PREFERRED PROVIDER ORGANIZATION (PPO) [place] Jun 13, 2016 [id number] [phone] JADE WEBER SPO USE [employer] ([id number]) [facility] [place] Jun 13, 2016 [id number] [phone] GUSDMITRIY SPOUSE [facility] [employer] Jun 13 [id number] [phone] JADE WEBER SPOUSE Selected Encounter This section includes the information on record at [place] for the Encounter. Date/Time Encounter Type Encounter Description Reason Provider Source Nov 21, 2020 01:30 PM ADM SARSCOV2 VAC AD26 .5ML PRIMARY CARE/ME DICINE ICD-10-CM Z23 Encounter for immunization with Provider Comments: Encounter for Immunization ROYER PIMENTEL [facility] Encounter Template Text not used by [facility] Assessments - Encounter Diagnoses This section includes the primary and secondary diag noses documented for the Encounter. Date/Time Primary/Secondary Diagnosis Diagnosis Name Provider Source Nov 21, 2020 01:27 PM PRIMARY Encounter for immunization ROYER NOLASCO [facility] Plan of Treatment: Future Appointments (+ 6 months) and Future Tests (+/- 45 day s) The Plan of Treatment section includes future care activities for the patient fr om all [place] treatment facilities. This section includes future appointments and fu ture orders which are active, pending or scheduled. Future Appointments This section includes appointments that were scheduled t o occur 6 months from the date of the Encounter, up to a maximum of 20 appointme nts. The data comes from all [place] treatment facilities. Appointment Date/Time Appointment Type Appointment Facili ty Name Dec 19, 2020 08:30 AM [facility] Mar 30, 2021 08:30 AM [facility]ORY - MEDICINE [facility] Mar 31, 2021 11:00 AM AMBULATORY - MEDICINE [facility] Surgical Procedures: All associated to the encounter This section includes all Surgical Procedures and Surgical Procedure Notes assoc iated to the Encounter. Surgical Procedures This section includes all Surgical Procedures associated to the Encounter. Surgical Procedure Date/Time Procedure Procedure Type Procedure Qualifiers Provider Source Nov 21, 2020 01:30 PM ADM SARSCOV2 VAC AD26 .5ML ADM SARSCOV2 VAC AD2 6 .5ML [facility] Surgical Notes There are no notes associated with this procedure. Lab Results: +/- 30 days of the encounter No Data Provided for This Section Vital Signs: All taken on the encounter date No Data Provided for This Section Immunizations: All administered on the encounter date This section contains immunizations associated to the Encounter. Immunization Series Date Issued Reaction Comments COVID-19 (NEEMA), VECTOR-NR, RS-AD26, PF, 0.5 ML 1 Nov 21, 2020 JSN; [id number]; 01/24/2021 Social History: Smoking Status (Most current) and Tobacco Use (All prior to enco unter date) This section includes the most current, and the historical, smoking and tobacco- related health factors from the [place] facility where the Encounter took place. Current Smoking Status This section includes the most current smoking, or tobacco -related health factor, from the [place] facility where the Encounter took place. Date/Time Current Smoking Status Comment Facility Dec 24, 2019 08:30 AM [place]-TOBACCO QUIT 15 YRS OR MORE [facility] Tobacco Use History This section includes a history of the smoking, or tobacco -related health factors, that were collected on or before the date of the Encoun ter. The data comes from the [place] facility where the Encounter took place. Date/Time Smoking Status/Tobacco Use Comment Facil it Dec 24, 2019 08:30 AM VA-TOBACCO QUIT 15 YRS OR MORE [facility] Feb 28, 2018 11:10 AM VA-TOBACCO FORMER USER [facility] Feb 28, 2018 11:10 AM MS-TOBACCO QUIT 5 TO < 15 YRS [facility] Aug 15, 2016 07:38 AM CURRENT NON-TOBACCO USER [facility] Jul 14, 2015 08:40 AM CURRENT NON-TOBACCO USER [facility] Jul 01, 2014 09:42 AM CURRENT NON-TOBACCO USER [facility] Mar 19, 2013 11:17 AM CURRENT NON-TOBACCO USER [facility] Advance Directives: All historical and current No Data Provided for This Section Radiology Reports: +/- 30 days of the encounter No Data Provided for This Section Pathology Reports: +/- 30 days of the encounter No Data Provided for This Section Encounter Notes: All associated encounter notes This section contains the clinical notes associated to the Encounter. Date/Time Encounter Note(s) Provider Source Nov 21, 2020 01:26 PM NURSING IMMUNIZATION NOTE: LOCAL TITLE: [facility]AAES NSG COVID-19 VACCINE ADMINISTRATION STANDARD TITLE: NURSING IMMUNIZATION NOTE DATE OF NOTE: NOV 21, 2020@13:26 ENTRY DATE: NOV 21, 2020@13:26:16 AUTHOR: ROYER PIMENTEL EXP COSIGNER: URGENCY: STATUS: COMPLETED The patient was given the EUA fact sheet for this vaccine which lists the benefits and side effects of the vaccine and which reviews the risks of the vaccine. The fact sheet was reviewed with the patient and they were given an opportunity to ask questions. The patient denied any prior severe reaction to this vaccine or its components. The patient gave verbal consent to receive the vaccine. The patient received [employer] Med COVID-19 Vaccine 0.5 ml IM. MVX (Manuf); Lot#; Exp Date: JSN; [id number]; 01/24/2021 Administration Anatomic site: Left Deltoid Vaccine administered without complications. The patient was advised to remain in the facility for 15 minutes post vaccination. The patient was given a completed COVID-19 vaccination record card, a copy of the VA Side Effects and Adverse Events Reporting Fact Sheet and instructed on how to report any adverse reactions. Vaccine administered by policy/protocol. /roldan/ ROYER PIMENTEL RN,BSN Signed: 11/21/2020 13:26 ROYER PIMENTEL [facility]
--- OUTSIDE RECORDS SUMMARY | 2021-06-29 00:21 | XMS REPORT | Encounter Summary ---
Author [facility] Address Unknown Phone Unavailable Care Team Providers Care Family Independence Case Manager Name Role Phone ROCHELLE OOCNNOR PCP Unavailable Insurance Providers: All historical and [...] Omalley [employer] PREFERRED PROVIDER ORGANIZATION (PPO) [employer] Sep 02, 2020 [id number] [phone] JADE WEBER SPO USE [employer] PREFERRED PROVIDER ORGANIZATION (PPO) [facility] [employer] Jun 13, 2016 [id number] [phone] JADE WEBER SPO USE [employer] ([id number]) [facility] [place] Jun 13, 2016 [id number] [phone] DMITRIY WEBER SPOUSE [facility] [employer] Jun 13 [id number] [phone] JADE WEBER SPOUSE Selected Encounter This section includes the information on record at [place] for the Encounter. Date/Time Encounter Type Encounter Description Reason Provider Source Nov 03, 2020 10:11 AM Outpatient Encounter ADMIN PAT ACTIVTIES (MASNO NCT) IHE Encounter Template Text not used by [place] Assessments - Encounter Diagnoses No Data Provided for This Section Plan of Treatment: Future Appointments (+ 6 months) and Future Tests (+/- 45 day s) The Plan of Treatment section includes future care activities for the patient fr om all [place] treatment facilities. This section includes future appointments and fu ture orders which are active, pending or scheduled. Future Appointments This section includes appointments that were scheduled t o occur 6 months from the date of the Encounter, up to a maximum of 20 appointme nts. The data comes from all [place] treatment [facility]. Appointment Date/Time Appointment Type Appointment Facili ty Name Nov 21, 2020 01:30 PM AMBULATORY - MEDICINE [facility] [place] [facility] Dec 19, 2020 08:30 AM AMBULATORY - [facility] Mar 30, 2021 08:30 AM AMBULATORY - MEDICINE [facility] Mar 31, 2021 11:00 AM AMBULATORY - MEDICINE [facility] Surgical Procedures: All associated to the encounter [...] Encounter. Date/Time Encounter Note(s) Provider Source Nov 03, 2020 10:11 AM ADMINISTRATIVE NOTE: LOCAL TITLE: EK-ADMINISTRATIVE STANDARD TITLE: ADMINISTRATIVE NOTE DATE OF NOTE: NOV 03, 2020@10:11 ENTRY DATE: NOV 03, 2020@10:11:31 AUTHOR: YASMEEN JUDD COSIGNER: URGENCY: STATUS: COMPLETED EK-ADMINISTRATIVE Has ADDENDA called U today to schedule Covid19 vaccine appts. Telephone meets the current guidelines for scheduling appts for Telephone's 55 years of age or older. This marketing copywriter verified Telephone's current address and phone number. This marketing copywriter scheduled this Telephone's 1st and 2nd dose and gave directions/instructions to vaccination location. This marketing copywriter gave [facility] phone number [phone] to call if a cancellation is needed. Telephone voiced understanding. This marketing copywriter mailed appt letters to . /roldan/ YASMEEN SANFORD Signed: 11/03/2020 10:18 11/03/2020 ADDENDUM STATUS: COMPLETED This marketing copywriter was given information on Covid19 vaccination clinic at [facility] on 11/21/2020. Icu Manager called to [place] if he would like to be scheduled there since it is closer to his home. Telephone wanted to be scheduled at [facility]. Icu Manager CL CX both doses at [facility] and scheduled at [facility]. /roldan/ YASMEEN SANFORD Signed: 11/03/2020 13:56 YASMEEN JUDD [facility]
--- OUTSIDE RECORDS SUMMARY | 2021-06-29 00:21 | XMS REPORT | Encounter Summary ---
Author [facility] Address Unknown Phone Unavailable Care Team Providers Care Stoker Mechanic Name Role Phone ROCHELEL OCONNOR PCP Unavailable Insurance Providers: All historical [...] Name Patient's Relationship to Policy Omalley [employer] PREFERRED PROVIDER ORGANIZATION (PPO) [employer] Sep 02, 2020 [id number] [phone] JADE WEBER SPO USE [employer] PREFERRED PROVIDER ORGANIZATION (PPO) [employer] Jun 13, 2016 [id number] [phone] JADE WEBER SPO USE [employer] ([id number]) [facility] [place] Jun 13, 2016 [id number] [phone] DMITRIY WEBER SPOUSE [facility] [employer] Jun 13 [id number] [phone] JADE WEBER SPOUSE Selected Encounter This section includes the information on record at [place] for the Encounter. Date/Time Encounter Type Encounter Description Reason Provider Source Mar 31, 2021 12:00 AM Outpatient Encounter EVENT (HISTORICAL) IHE Encounter Template Text not used by VA Assessments - Encounter Diagnoses No Data Provided for This Section Plan of Treatment: Future Appointments (+ 6 months) and Future Tests (+/- 45 day s) The Plan of Treatment section includes future care activities for the patient fr om all [place] treatment facilities. This section includes future appointments and fu ture orders which are active, pending or scheduled. Future Appointments This section includes appointments that were scheduled t o occur 6 months from the date of the Encounter, up to a maximum of 20 appointme nts. The data comes from all [facility]. Appointment Date/Time Appointment Type Appointment Facili ty Name Jun 07, 2021 02:00 PM AMBULATORY - NONE [facility] Jul 20, 2021 11:00 AM AM[facility]ORY - NONE [place] [facility], [facility]IS[facility] 15 Sep 14, 2021 10:15 AM AM[facility]UL[facility]ORY - MEDICINE [facility] Sep 29, 2021 02:00 PM AMBULATORY - MED[facility] Active, Pending, and Scheduled Orders This [...] the Encounter. The data comes from all [facility]. Test Date/Time Test Type Test Details Facility Name Mar 31, 2021 11:28 AM Consult Order TO-EYE CARE OUTPT- 589A5 Cons Fibrous Wallboard Inspector's Choice [facility] Surgical Procedures: All associated to the encounter No Data Provided for This Section Lab Results: +/- 30 days of the encounter This section includes the Chemistry and Hematology Lab R esults on record with [facility] for the patient. Radiology Reports and Pathology Report s are provided separately, in subsequent sections. Lab Results This section contains the Chemistry/Hematology Results so t were resulted 30 days before or 30 days after the date of the Encounter. Date/Time Source Result Type Result - Unit Interpretation Reference Range Comment Mar 30, 2021 08:[address] [facility] LIPID PROFILE(HDL,TRI G,CHOL,LDL) Specimen Type: PLASMA No comment entered. Ordering Provider: ROCHELLE OCONNOR Report Released Date/Time: Oct 25, 2020 05:00 PM Reporting Lab: [facility] [place] [facility] [address] [facility] [address] Performing Lab: [facility] [address] [facility] [address] CHOLESTEROL 181 mg/dL 0-200 TRIGS 91 mg/dL 0-150 HDL-CHOLESTEROL 50 mg/dL > 40 LDL (CALC) 113 mg/dL H 0-99 Mar 30, 2021 08:[address] [facility] PROSTATIC SPECIFIC AN TIGEN(TOTAL) Specimen Type: SERUM No comment entered. Ordering Provider: ROCHELLE OCONNOR Report Released Date/Time: Oct 25, 2020 05:00 PM Reporting Lab: [facility] [address] [facility] [address] Performing Lab: [facility] [address] [facility] [address] PROSTATIC SPECIFIC ANTIGEN(TOTAL) 0.73 ng/mL 0.00-4.00 Mar 30, 2021 08:[address] [facility] COMPREHENSIVE METABOL IC PANEL Specimen Type: PLASMA No comment entered. Ordering Provider: ROCHELLE OCONNOR Report Released Date/Time: Oct 25, 2020 05:00 PM Reporting Lab: [facility] [address] [facility] [address] Performing Lab: [facility] [address] [facility] [address] *CREATININE 0.90 mg/dL 0.70-1.30 UREA NITROGEN mg/dL [...] EGFR 85.2 Mar 30, 2021 08:[address] [facility] TSH Speci men Type: SERUM No comment entered. Ordering Provider: ROCHELLE OCONNOR Report Released Date/Time: Oct 25, 2020 05:00 PM Reporting Lab: [facility] [address] [facility] [address] Performing Lab: [facility] [address] [facility] [address] TSH 4.105 uIU/mL 0.47-5.00 Mar 30, 2021 08:[address] [facility] CBC & DIFF Speci men Type: BLOOD No comment entered. Ordering Provider: ROCHELLE OCONNOR Report Released Date/Time: Oct 25, 2020 05:00 PM Reporting Lab: [facility] [address] [facility] [address] Performing Lab: [facility] [address] [facility] [address] WBC 4.26 K/cmm 3.60-11.20 RBC 5.46 M/ul [...] 0.2 % Mar 30, 2021 08:[address] [facility] URINALYSIS Speci men Type: URINE No comment entered. Ordering Provider: ROCHELLE OCONNOR Report Released Date/Time: Oct 25, 2020 05:00 PM Reporting Lab: [facility] [address] [facility] [address] Performing Lab: [facility] [address] [facility] [address] URINE COLOR Yellow SPECIFIC GRAVITY 1.024 1.005-1.030 UROBILINOGEN Negative mg/dL 0.1-1.0 URINE BILIRUBIN Negative Negative URINE KETONES Negative mg/dl Negative URINE GLUCOSE Negative mg/dL Negative URINE PROTEIN Negative mg/dl Negative-Tr nam URINE PH 6.0 5-8 APPEARANCE,URINE Clear Clear URINE BLOOD Negative Negative URINE NITRITE Negative Negative LEUKOCYTE ESTERASE Negative Negative Mar 30, 2021 08:[address] [facility] VITAMIN D (25-OH) Sp ecimen Type: SERUM No comment entered. Ordering Provider: ROCHELLE OCONNOR Report Released Date/Time: Oct 25, 2020 05:00 PM Reporting Lab: [facility] [address] [facility] [address] Performing Lab: [facility] [address] [facility] [address] VITAMIN D (25-OH) 43.5 ng/mL 30.0-96.0 Mar 30, 2021 08:[address] [facility] T4 FREE Speci men Type: SERUM No comment entered. Ordering Provider: ROCHELLE OCONNOR Report Released Date/Time: Oct 25, 2020 05:00 PM Reporting Lab: [facility] [address] [facility] [address] Performing Lab: [facility] [address] [facility] [address] T4 FREE 0.96 ng/dL 0.70-1.48 Vital Signs: [...]
--- NOTE | 2021-06-29 00:23 | ED Syncope ---
General Stated Complaint: STROKE SYMPTOMS Source of Information: Patient, Caregiver History of Present Illness Date Seen by Provider: Jun 29, 2021 Time Seen by Provider: 00:05 Initial Comments 61-year-old male with past medical history of ocular myasthenia coming in with his due to concerns for syncopal episode that occurred just shortly prior to arrival. He got up from bed, fell, hit the right side of his head, and was found laying down by his . He was confused for some time before he came to. He was able to get a vehicle and walk inside afterwards. He says he believes he was getting up to cough and he believes he got lightheaded and passed out. He is unsure of this however. His states that she does not believe he was coughing and is unsure why or how he passed out or if he tripped. It was dark in the room however. He denies any chest pain, shortness of breath, abdominal pain, nausea, vomiting, diarrhea, fever, chills, weakness, unilateral numbness, vision changes, or any other concerns. He does have a mild headache that is more towards the front right side of his head that is throbbing and constant. Has not tried any medications for it as of yet. Does not take any blood thinners other than a baby aspirin daily. Allergies and Home Medications Allergies Coded Allergies: No Known Drug Allergies (Unverified , 06/29/21) Patient Home Medication List Home Medication List Reviewed: Yes Review of Systems Constitutional: No chills, No fever EENTM: No blurred vision, No double vision Respiratory: cough; No short of breath Cardiovascular: No chest pain, No palpitations; syncope Gastrointestinal: No abdominal pain, No constipation, No diarrhea, No nausea, No vomiting Genitourinary: no symptoms reported Musculoskeletal: no symptoms reported Skin: no symptoms reported Psychiatric/Neurological: No Symptoms Reported All Other Systems Reviewed Negative Unless Noted: Yes Past Ohaueib-Ojhdvf-Bgniza Hx Patient Social History Tobacco Use?: No Substance use?: No Alcohol Use?: Yes Alcohol Frequency: Rarely Past Medical History Surgeries: Yes Appendectomy Physical Exam Vital Signs Vital Signs - First Documented 06/29/21 00:12 Temp 36.5 Pulse 66 Resp 18 B/P (MAP) 185/91 (122) Pulse Ox 99 O2 Delivery Room Air Capillary Refill : Height, Weight, BMI Height: '" Weight: lbs. oz. kg; BMI Method: General Appearance: No Apparent Distress, WD/WN HEENT: PERRL/EOMI, TMs Normal, Normal ENT Inspection, Pharynx Normal Neck: Full Range of Motion, Normal Inspection, Non Tender, Supple Cardiovascular: Regular Rate, Rhythm, No Edema, Normal Peripheral Pulses Respiratory: Chest Non Tender, Lungs Clear, Normal Breath Sounds, No Accessory Muscle Use, No Respiratory Distress Gastrointestinal: Normal Bowel Sounds, Non Tender, Soft; No Distended, No Guarding, No Rebound Back: Normal Inspection, No CVA Tenderness, No Vertebral Tenderness Extremities: Normal Capillary Refill, Normal Inspection, Normal Range of Motion, Non Tender, No Calf Tenderness, No Pedal Edema Neurologic/Psychiatric: Alert, Oriented x3, No Motor/Sensory Deficits, Normal 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, 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 as 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; No Abnormal Cerebellar Tests, No Abnormal Gait Cranial Nerves: Normal Hearing, Normal Speech, PERRL, Tongue Deviation (L), Tongue Deviation (R), Other (Normal visual berg) Coordination/Gait: Normal Finger to Nose, Normal Gait, Negative Romberg's Sign, Other (Normal [id number]) Motor/Sensory: No Motor Deficit, No Sensory Deficit, No Pronator Drift Skin: Normal Color, Warm/Dry Lymphatic: No Adenopathy Progress/Results/Core Measures Results/Orders Lab Results Laboratory Tests Test 06/29/21 00:23 Range/Units White Blood Count 6.0 4.3-11.0 10^3/uL Red Blood Count 5.31 4.30-5.52 10^6/uL Hemoglobin 16.0 13.3-17.7 g/dL Hematocrit 46 40-54 % Mean Corpuscular Volume 87 80-99 fL Mean Corpuscular Hemoglobin 30 25-34 pg Mean Corpuscular Hemoglobin Concent 35 32-36 g/dL Red Cell Distribution Width 12.5 10.0-14.5 % Platelet Count 202 130-400 10^3/uL Mean Platelet Volume 9.2 9.0-12.2 fL Immature Granulocyte % (Auto) 0 % Neutrophils (%) (Auto) 57 42-75 % Lymphocytes (%) (Auto) 34 12-44 % Monocytes (%) (Auto) 6 0-12 % Eosinophils (%) (Auto) 2 0-10 % Basophils (%) (Auto) 1 0-10 % Neutrophils # (Auto) 3.4 1.8-7.8 X 10^3 Lymphocytes # (Auto) 2.1 1.0-4.0 X 10^3 Monocytes # (Auto) 0.4 0.0-1.0 X 10^3 Eosinophils # (Auto) 0.1 0.0-0.3 10^3/uL Basophils # (Auto) 0.0 0.0-0.1 10^3/uL Immature Granulocyte # (Auto) 0.0 0.0-0.1 10^3/uL Prothrombin Time 13.1 12.2-14.7 SEC INR Comment 1.0 0.8-1.4 Activated Partial Thromboplast Time 25 24-35 SEC Sodium Level 139 135-145 MMOL/L Potassium Level 3.6 3.6-5.0 MMOL/L Chloride Level 101 98-107 MMOL/L Carbon Dioxide Level 29 21-32 MMOL/L Anion Gap 9 5-14 MMOL/L Blood Urea Nitrogen 21 H 7-18 MG/DL Creatinine 1.03 0.60-1.30 MG/DL Estimat Glomerular Filtration Rate 73 BUN/Creatinine Ratio 20 Glucose Level 111 H 70-105 MG/DL Calcium Level 9.4 8.5-10.1 MG/DL Corrected Calcium 8.5-10.1 MG/DL Magnesium Level 2.1 1.6-2.4 MG/DL Total Bilirubin 0.4 0.1-1.0 MG/DL Aspartate Amino Transf (AST/SGOT) 26 5-34 U/L Alanine Aminotransferase (ALT/SGPT) 36 0-55 U/L Alkaline Phosphatase 50 40-136 U/L Troponin I < 0.30 <0.30 NG/ML Pro-B-Type Natriuretic Peptide 130.7 H <75.0 PG/ML Total Protein 7.1 6.4-8.2 GM/DL Albumin 4.8 H 3.2-4.5 GM/DL My Orders Orders - COLE FONSECA MD Cbc With Automated Diff (06/29/21 00:23) Comprehensive Metabolic Panel (06/29/21 00:23) Magnesium (06/29/21 00:23) Protime With Inr (06/29/21:23) Partial Thromboplastin Time (06/29/21 00:23) Probnp Fs (06/29/21 00:23) Troponin I Fs (06/29/21 00:23) Chest 1 View Ap/Pa Only (06/29/21:23) Ct Head/Cervical Spine Wo (06/29/21:23) Ed Iv/Invasive Line Start (06/29/21 00:23) Ekg Tracing (06/29/21:23) Monitor-Rhythm Ecg Trace Only (06/29/21:) Orthostatic Vital Signs (Adult (06/29/21:23) Ct Angio Head/Neck (06/29/21 01:02) Iohexol Injection (Omnipaque 350 Mg/Ml 1 (06/29/21:30) Received Contrast (Hold Metformin- Contr (06/29/21:30) Sodium Chloride Flush (Catheter Flush Sy (06/29/21:30) Ns (Ivpb) (Sodium Chloride 0.9% Ivpb Bag (06/29/21:30) Acetaminophen Tablet (Tylenol Tablet) (06/29/21 02:00) Medications Given in ED Current Medications Medications Dose Ordered Sig/Melchor Route Start Time Stop Time Status Last Admin Dose Admin Acetaminophen 1,000 mg ONCE ONCE PO 06/29/21 02:00 06/29/21 02:01 DC 06/29/21 02:01 1,000 MG Vital Signs/I&O 06/29/21 00:12 Temp 36.5 Pulse 66 Resp 18 B/P (MAP) 185/91 (122) Pulse Ox 99 O2 Delivery Room Air Progress Progress Note : Progress Note 61-year-old male with above history coming in after mechanical fall versus syncope with hematoma to the right side of his forehead where he hit his head. ABCs were intact, vital stable, GCS 15 on presentation. Neuro exam normal including no weakness or numbness that is focal. EKG without any acute ischemic findings. Blood glucose was 89. Electrolytes normal, troponin negative x2, BNP just slightly elevated which is nonspecific. CXR normal. CT head and c spine without contrast normal. Orthostatic vitals completed by me with no changes from laying to standing. Discussed the case with the patient and spouse, and they would feel more comfortable if he had a vascular study completed as strokes run in the family. CTA head and neck ordered at that time. Continued to not have any neuro deficits ever while in the ED with repeat assessments. CTA head and neck negative for any acute abnormalities. The patient continues to be at his baseline. I believe he is stable for discharge with outpatient follow-up. He was sent home with strict return precautions. My suspicion is he has some type of vagal event or mechanical fall. Initial ECG Impression Date: Jun 29, 2021 Initial ECG Impression Time: 00:15 Initial ECG Rate: 66 Initial ECG Rhythm: Normal Sinus Comment Narrow QRS, normal axis, no significant ST changes or T wave abnormalities Diagnostic Imaging Diagonstic Imaging: Xray (chest), CT (head and c spine without contrast, CTA head and neck with contrast) Comments Chest x-ray ordered and interpreted by me showing no obvious pneumonia or pneu mothorax CT head ordered and reviewed [place] read with no acute intracranial pathology, CT cervical spine negative for any acute abnormalities. CTA head and neck negative for acute findings or stenosis. Departure Impression Primary Impression: Syncope Qualified Codes: R55 - Syncope and collapse Additional Impression: Concussion Qualified Codes: S06.0X1A - Concussion with loss of consciousness of 30 minutes or less, initial encounter Disposition: 01 HOME, SELF-CARE Condition: Stable Departure-Patient Inst. Decision time for Depature: 02:25 Referrals: ERIS RIOJAS MD (PCP/Family) Primary Care Physician Patient Instructions: Concussion, Adult ED, Syncope (Fainting) (DC) Add. Discharge Instructions: You were seen in the emergency department after you passed out and hit your head. Fortunately all of your labs and imaging are normal. It does not appear like you have a stroke and you have no bleeding in your head. Your heart labs look normal as well and your EKG is normal. I recommend you follow-up with your primary care doctor to discuss what happened and see if they want to do any further work-up as an outpatient. Given that you hit your head, passed out, and have a headache, you do most certainly have a concussion. I would recommend taking ibuprofen or Tylenol for headache, drink plenty of fluids, and rest over the next couple days. COLE FONSECA MD Jun 29, 2021 00:23
[2021-06-29 00:30] VITALS: BP_SYST 160; BP_SYST 164; BP_SYST 166; BP_DIAS 86; BP_DIAS 88; BP_DIAS 90
[2021-06-29 00:57] LABS: BASOPHILS % (AUTO) 1 % (0-10); EOSINOPHILS % (AUTO) 2 % (0-10); HEMATOCRIT 46 % (40-54); LYMPHOCYTES % (AUTO) 34 % (12-44); MEAN CORPUSCULAR HEMOGLOBIN 30 pg (25-34); MEAN CORPUSCULAR HGB CONC 35 g/dL (32-36); MEAN CORPUSCULAR VOLUME 87 fL (80-99); MEAN PLATELET VOLUME 9.2 fL (9.0-12.2); MONOCYTES % (AUTO) 6 % (0-12); NEUTROPHILS % (AUTO) 57 % (42-75); PLATELET COUNT 202 10^3/uL (130-400)
[2021-06-29 00:58] LABS: EOSINOPHILS # (AUTO) 0.1 10^3/uL (0.0-0.3); LYMPHOCYTES # (AUTO) 2.1 X 10^3 (1.0-4.0); MONOCYTES # (AUTO) 0.4 X 10^3 (0.0-1.0); NEUTROPHILS # (AUTO) 3.4 X 10^3 (1.8-7.8)
[2021-06-29 00:59] LABS: PROTHROMBIN TIME PATIENT 13.1 SEC (12.2-14.7)
[2021-06-29 01:06] LABS: BUN/CREATININE RATIO 20; CARBON DIOXIDE 29 MMOL/L (21-32); CHLORIDE 101 MMOL/L (98-107); CREATININE SERUM 1.03 MG/DL (0.60-1.30); GFR ESTIMATED 73; POTASSIUM 3.6 MMOL/L (3.6-5.0); SODIUM 139 MMOL/L (135-145)
[2021-06-29 01:07] LABS: ALANINE AMINOTRANSFERASE 36 U/L (0-55); ALBUMIN 4.8 GM/DL (3.2-4.5); ALKALINE PHOSPHATASE 50 U/L (40-136); BILIRUBIN,TOTAL 0.4 MG/DL (0.1-1.0); CALCIUM 9.4 MG/DL (8.5-10.1); GLUCOSE 111 MG/DL (70-105); MAGNESIUM 2.1 MG/DL (1.6-2.4); TOTAL PROTEIN 7.1 GM/DL (6.4-8.2)
[2021-06-29] MEDS ORDERED: HOLD METFORMIN - RECEIVED CONTRAST 20 ML VIAL IV SCH (01:30)
[2021-06-29] MEDS ORDERED: CATHETER FLUSH 10 ML SYR IV PRN (01:30)
[2021-06-29] MEDS ORDERED: IOHEXOL 350 MG/ML 100 ML (OMNIPAQUE 350) VIAL IV ONE (01:30)
[2021-06-29] MEDS ORDERED: NS 100 ML (IVPB) BAG IV ONE (01:30)
[2021-06-29] MEDS ORDERED: ACETAMINOPHEN 500 MG TAB (TYLENOL) PO ONE (02:00)
[2021-06-29 02:30] VITALS: BP 133/77
--- NOTE | 2021-06-29 06:39 | Diagnostic Imaging Report ---
PROCEDURE: CT head and CT cervical spine without contrast. TECHNIQUE: Multiple contiguous axial images were obtained through the brain and cervical spine without the use of intravenous contrast. Sagittal and coronal reformations through the cervical spine were then performed. Auto Exposure Controls were utilized during the CT exam to meet ALARA standards for radiation dose reduction. INDICATION: Syncopal episode. Head and neck pain. Fall. COMPARISON: None. FINDINGS: CT head: No large acute territorial ischemia, mass, or hemorrhage. No midline shift or mass effect. The ventricles, cortical sulci, and basilar cisterns are patent and unremarkable. The calvarium is intact. Scalp contusion is seen overlying the forehead right of midline. The visualized paranasal sinuses are clear. CT cervical spine: No acute fracture or dislocation is seen in the cervical spine. No focal osseous lesions. Vertebral body heights are well-maintained. Grade 1 anterolisthesis of C4 on C5 is noted. The craniocervical junction is well-maintained. Mild degenerative changes are seen in the cervical spine with disc osteophyte complexes and uncovertebral arthropathy. Soft tissues of the neck are unremarkable. The included lung apices are clear. IMPRESSION: 1. No hemorrhage or focal intra-axial mass. No CT evidence of large acute territorial ischemia. 2. No acute fracture or dislocation in the cervical spine. 3. Scalp contusion overlying the forehead right of midline. No associated calvarial fracture. Agree with overnight report. Dictated by: Dictated on workstation # [id number]
--- NOTE | 2021-06-29 06:43 | Diagnostic Imaging Report ---
PROCEDURE: CT angiography of the head and CT angiography of the neck with and without contrast. TECHNIQUE: Contiguous noncontrast images were obtained from the skull base through the vertex. After intravenous contrast administration, helical CT angiography of the neck was performed. Source data was reformatted into 3D MIP projections. Delayed post contrast acquisition was also obtained. Auto Exposure Controls were utilized during the CT exam to meet ALARA standards for radiation dose reduction. INDICATION: Syncopal episode. Right-sided facial droop. Comparison: CT head and neck performed earlier the same date. FINDINGS: CTA Neck: The visualized portions of the aortic arch demonstrate atherosclerotic plaque without evidence of aneurysm or dissection. There is conventional branching pattern of the great vessels of the aorta. The brachiocephalic artery is normal in course and caliber. The right and left common carotid origins are unremarkable. The origin of the left subclavian artery is patent. The common carotid arteries and internal carotid arteries demonstrate a normal course. There is mild atherosclerotic plaque in the bilateral carotid bulbs and proximal internal carotid arteries without flow-limiting stenosis. No evidence of dissection in the carotid systems. The external carotid arteries are patent and unremarkable. The vertebral arteries are codominant. The origin of the right vertebral artery is seen and is unremarkable. The origin of the left vertebral artery is seen and is unremarkable. There is no focal stenosis seen within the neck. There is no dissection. The vertebral arteries are well visualized to up to the level of the basilar artery. The osseous structures of the cervical spine are unremarkable. Included views through the lung apices demonstrate no focal consolidation. CTA brain: Atherosclerotic plaque is seen in the [place] of the bilateral terminal internal carotid arteries without significant stenosis. No stenosis is seen in the bilateral anterior, middle, and posterior cerebral arteries. No evidence of aneurysm the [place]. In the posterior circulation, both of the vertebral arteries demonstrate normal opacification. The vertebral arteries are codominant. Both the right and left PICA arteries are identified. The basilar artery is normal in course and caliber. The terminal branch vessels including the superior cerebellar arteries unremarkable. IMPRESSION: 1. No stenosis or aneurysm in the [place]. No evidence of large vessel occlusion. 2. No stenosis or dissection the bilateral carotid and vertebral arteries. Agree with overnight report. Dictated by: Dictated on workstation # [id number]
--- NOTE | 2021-06-29 07:37 | Diagnostic Imaging Report ---
EXAMINATION: Chest 1 view HISTORY: Fall. Syncopal episode. COMPARISON: None available. FINDINGS: The lung volumes are normal. No focal consolidation is seen. No large pleural effusion or pneumothorax is seen. The cardiomediastinal silhouette is normal in size and contour. There is calcified aortic atherosclerotic plaque. No acute osseous abnormality is seen. IMPRESSION: 1. No acute pleuroparenchymal process. Dictated by: Dictated on workstation # [id number]
== END 2021-06-29 02:35 | disposition home or self-care (01) ==
LOC: ER FS 00:05
DX: S06.0X0A Concussion without loss of consciousness, initial encounter (principal); R55 Syncope and collapse; W22.8XXA Striking against or struck by other objects, initial encounter
CPT/HCPCS: 36415; 70450; 70496; 70498; 71045; 72125; 80053; 83735; 83880; 84484; 85025; 85610; 85730; 93005; 93041